=== PATIENT | female | born 1950 ===

== ENCOUNTER 2016-11-04 18:44 | Inpatient (IN) ==
[2016-11-04] MEDS ORDERED: ONDANSETRON 4 MG/2 ML VIAL IV STA (19:01)
[2016-11-04] MEDS ORDERED: MORPHINE 2 MG/1 ML SYRINGE IV STA (19:01)
[2016-11-04] MEDS ORDERED: ASPIRIN 325 MG TABLET PO STA (19:01)
[2016-11-04] MEDS ORDERED: FUROSEMIDE 100 MG/10 ML VIAL IV STA (19:01)
[2016-11-04] MEDS ORDERED: NITROGLYCERIN 2% OINT 1 INCH/GM PACK TOP STA (19:01)
[2016-11-04] MEDS ORDERED: ENOXAPARIN 100 MG/ML SYRINGE SUBCUT STA (19:01)
[2016-11-04] MEDS ORDERED: ALBUTEROL/IPRATROPIUM 3 ML NEB RESP TX STA (19:01)
--- NOTE | 2016-11-04 19:05 | Emergency Department Note ---
Misha Ivey Brittany, am scribing for, and in the presence of, Jesus Obrien MD 19:01. Camille Ivey Charles R, MD, personally performed the services described in this documentation, ascribed by Stephy Cabral in my presence, and it is both accurate and complete [id number] . Arrival - Arrival Chief Complaint: Chest Pain ED Nursing Triage Note: py was transfered from [facility] for cp and sob for a few weeks. increased bnp Mode of Arrival: Stretcher Limitations: No Limitations Source: Patient, RN Notes Reviewed Time Seen by Provider: 11/04/16 18:51 - History of Present Illness HPI Narrative: Patient is a 66 y/o [place] female presenting to the ED by EMS from [facility] for further evaluation of new onset Heart Failure. Patient presented to [facility] with c/o chest pain and shortness of breath with an onset of a week, progressively worsening each day. Chest pain occurred mostly on the right side. Patient reports that she has been short of breath which has made ambulation and laying down comfortably difficult for her. She has also had some nausea and vomiting as well. Her oxygen saturation is 97% on oxygen 2L via NC. She denies having any chest pain as of now, but is still short of breath. 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 As she gives history it is apparent that prior CVA may have also affected her speech. She has no other complaint/pain. Onset (ago): week(s) (1) Consistency: constant Severity: moderate Severity scale (1-10): 6 Quality: aching Allergies/Adverse Reactions: Allergies Allergy/AdvReac Type Severity Reaction Status Date / Time No Known Allergies Allergy Unverified 11/04/16 18:50 Review of System - Review of System 12 point system: reviewed and no additional remarkable complaints except as stated - Review of System Constitutional: Absent: chills, fever Eyes: Absent: vision change Head/Ears/Nose/Throat: Absent: nasal drainage, sore throat Respiratory: Present: respiratory distress Cardiovascular: Present: chest pain Gastrointestinal: Present: nausea, vomiting. Absent: abdominal pain, diarrhea, constipation Genitourinary female: Absent: dysuria, frequency, urgency Musculoskeletal: Absent: arm pain, back pain, leg pain, neck pain Skin: Absent: rash Neurological: Absent: headache Psychiatric: Absent: anxiety, depression Hematological/Lymphatic: Absent: easy bleeding, easy bruising Medical,Surgical,& Family Hx - Medical History Cardio: History of: Hypertension Neurology: History of: Cerebrovascular Accident (x2) Endocrine: History of: Diabetes Mellitus (IDDM), Dyslipidemia - Social History Smoking Status: Never smoker Frequency of Alcohol Use: None Type of Drug Use: None Exam Vital Signs: Vital Signs Temperature 97.8 F 11/04/16 18:44 Pulse Rate 100 H 11/04/16 18:44 Respiratory Rate 20 11/04/16 18:44 Blood Pressure 119/57 11/04/16 18:44 O2 Sat by Pulse Oximetry 87 L 11/04/16 18:44 - General General appearance: alert, in no apparent distress, other (speaks loudly during exam likely residual from prior CVA) - Head Head exam: Present: atraumatic, normocephalic, normal inspection - Eye Eye exam: Present: normal appearance, PERRL, EOMI - ENT ENT exam: Present: normal exam, normal oropharynx - Neck Neck exam: Present: normal inspection, full ROM, trachea midline - Chest Chest inspection: Present: normal inspection, symmetric chest wall rise - Respiratory Respiratory exam: Present: rales (to the right lung field). Absent: normal lung sounds bilaterally (decreased breath sounds to the right) - Cardiovascular Cardiovascular exam: Present: regular rate, normal rhythm, normal heart sounds. Absent: murmur, rubs, gallop - Abdominal Exam Abdominal exam: Present: soft, normal bowel sounds. Absent: distention, tenderness - Extremities Exam Extremities exam: Present: normal inspection. Absent: pedal edema - Back Exam Back exam: Present: normal inspection - Neurological Exam Neurological exam: Present: alert, oriented X3, CN II-XII intact. Absent: motor sensory deficit - Psychiatric Psychiatric exam: Present: normal affect, normal mood - Skin Skin exam: Present: warm, dry, intact, normal color Course - Consultations Consultation #1: Hospitalist will admit patient Time: 19:00 Results - Labs Lab Results: I have reviewed the patients labs Labs: All results reviewed from previous facility Critical Care Time Critical Care Time: Yes Total Critical Care Time: 30 Disposition Clinical Impression: Atypical chest pain, New onset of congestive heart failure, Hyponatremia, Elevated troponin, History of CVA (cerebrovascular accident) Case discussed with: patient Disposition: Still a Patient Condition: Stable Time of Disposition: 19:05
[2016-11-04] MEDS ORDERED: ONDANSETRON 4 MG/2 ML VIAL ONE (19:22)
[2016-11-04] MEDS ORDERED: ENOXAPARIN 80 MG/0.8 ML SYRINGE SUBCUT ONE (19:22)
[2016-11-04] MEDS ORDERED: NITROGLYCERIN 2% OINT 1 INCH/GM PACK TOP ONE (19:22)
[2016-11-04] MEDS ORDERED: FUROSEMIDE 20 MG/2 ML VIAL ONE (19:23)
[2016-11-04] MEDS ORDERED: MORPHINE 2 MG/1 ML SYRINGE ONE (19:23)
[2016-11-04] MEDS ORDERED: FUROSEMIDE 20 MG/2 ML VIAL IV STA (19:28)
--- NOTE | 2016-11-04 19:31 | XRay Report ---
Referring Physician: Jesus Obrien Exam: XR chest 1V portable Date: November 04, 2016 at 7:11 PM Reason: Shortness of breath Comparison: Chest single view November 04, 2016 at 2:38 PM Findings: There is mild cardiomegaly. Opacities are seen within the right mid and lower lung zones and within the left lower lung zone. This is concerning for pulmonary edema, atelectasis and possibly pneumonia. No pneumothorax is identified, but there is mild to moderate bilateral pleural fluid. The osseous structures appear stable. Impression: 1. Cardiomegaly. 2. There are opacities within the right mid and lower lung zones and within the left lower lung zone. This is concerning for pulmonary edema, atelectasis and possibly pneumonia. 3. Mild to moderate bilateral pleural fluid, right greater than left. PROCEDURE INTERPRETED AT [facility] DEPARTMENT OF RADIOLOGY Final Report Signed by: Dr. Devante Robert
--- NOTE | 2016-11-04 19:31 | Hospitalist History & Physical ---
Assessment and Plan (1) Atypical chest pain Status: Acute Current Visit: Yes (2) New onset of congestive heart failure Status: Acute Current Visit: Yes (3) Elevated troponin Status: Acute Current Visit: Yes (4) History of CVA (cerebrovascular accident) Status: Acute Assessment and plan: Our plan for this patient will be admission to telemetry. We will schedule her IV Lasix. Currently she is feeling better. Will consult cardiology and get a 2D echo. Labs are being repeated now will need to follow up on the results. Current Visit: Yes History of Present Illness Chief complaint: Shortness of breath or chest pain History of present illness: Ms. Baird is a 66 year old female past medical history significant for strokes , hypertension and diabetes who presents to our hospital today as a transfer from [facility]. Patient relates a history of urgency with poor results this been going on for a little while. She is noticed that she has had generalized weakness with exertion. She gets short of breath when she exerts herself and lays flat. She went to the [facility] complaining of chest pain shortness of breath onset 1 week. Seems like it has been worsening every day. Chest pain occurs on the right. She has had some nausea and vomiting also. Currently is not having any chest pain is still short of breath but does feel better since receiving Lasix. I was consulted to admit her through the emergency room. Allergies Allergy/AdvReac Type Severity Reaction Status Date / Time No Known Allergies Allergy Unverified 11/04/16 18:50 Medical,Surgical,& Family Hx - Medical History Cardio: History of: Hypertension Neurology: History of: Cerebrovascular Accident (x2) Endocrine: History of: Diabetes Mellitus (IDDM), Dyslipidemia - Surgical History Reproductive Surgeries: Surgical HX of;: Section - Family History Family History: Reports;: Family Diabetes, Family Heart Disease - Social History Smoking Status: Never smoker Frequency of Alcohol Use: None Type of Drug Use: None 12 point system: reviewed and no additional remarkable complaints except as stated Exam - Constitutional Vitals: Period Temp Pulse Resp BP Sys/Natarajan Pulse Ox Last 24 Hr 97.8 F-97.8 F 100-100 20-20 119-119/57-57 87 - General General appearance: alert, in no apparent distress, - Head Head exam: Present: atraumatic, normocephalic, normal inspection - Eye Eye exam: Present: normal appearance, PERRL, EOMI - ENT ENT exam: Present: normal exam, normal oropharynx - Neck Neck exam: Present: normal inspection, full ROM, trachea midline - Chest Chest inspection: Present: normal inspection, symmetric chest wall rise - Respiratory Respiratory exam: Present: Rales are noted bilaterally in the basis - Cardiovascular Cardiovascular exam: Present: regular rate, normal rhythm, normal heart sounds - Abdominal Exam Abdominal exam: Present: soft, normal bowel sounds - Extremities Exam Extremities exam: Present: normal inspection - Back Exam Back exam: Present: normal inspection - Neurological Exam Neurological exam: Present: alert, oriented X3, CN II-XII intact - Psychiatric Psychiatric exam: Present: normal affect, normal mood - Skin Skin exam: Present: warm, dry, intact, normal color Results - Labs Labs: Labs from outside facility troponin 0.065 CK-MB 1.1 CPK 50 white blood cells 6.9 hemoglobin 11.9 hematocrit 36.2 platelets 217 glucose 124 BUN 24 creatinine 1.0 calcium 8.0 sodium 145 potassium 3.9 chloride 110 bicarb 28 total protein 6.4 albumin 2.3 total bili 0.5 alk phos 75 SGOT 19 SGPT 14 amylase 28 lipase 105 urinalysis negative nitrites negative leukocyte esterase
[2016-11-04] MEDS ORDERED: DEXTROSE 50% 25 GM/50 ML VIAL IV PRN ×2 (19:39)
[2016-11-04] MEDS ORDERED: MAGNESIUM SULF RIDER 2 GM in PREMIX 1 EACH IV PRN (19:39)
[2016-11-04] MEDS ORDERED: ACETAMINOPHEN 325 MG TABLET PO PRN (19:39)
[2016-11-04] MEDS ORDERED: ONDANSETRON 4 MG/2 ML VIAL IV PRN (19:39)
[2016-11-04] MEDS ORDERED: GLUCAGON 1 MG VIAL IM PRN ×2 (19:39)
[2016-11-04] MEDS ORDERED: MAGNESIUM SULF RIDER 4 GM in PREMIX 1 EACH IV PRN (19:39)
[2016-11-04 19:59] LABS: Basophils % 0.1 % (0.0-0.8); Eosinophils # 0.2 10*3/uL (0.0-0.87); Eosinophils % 2.5 % (0.00-10.9); Hematocrit 34.1 VOL% (35.7-47.0); Hemoglobin 10.8 GM/DL (12.0-16.0); Immature Granulocytes % 0.3 %; Immature Granulocytes Absolute 0.02 #; Lymphocytes # 1.8 10*3/uL (1.4-4.0); Lymphocytes % 24.5 % (21.3-54.2); Mean Corpuscular HGB Conc 31.7 GM/DL (32-36); Mean Corpuscular Hemoglobin 27 PG (27-34); Mean Corpuscular Volume 84.8 FL (87-102); Mean Platelet Volume 11.3 FL (9.6-12.0); Monocytes # 0.3 10*3/uL (0.11-0.8); Monocytes % 3.9 % (1.7-12.7); Neutrophils % 68.7 % (38.7-73.9); Platelet Count 203 T/CUMM (130-400); Red Blood Count 4.02 MC/CUMM (3.8-5.5); Red Cell Distribution Width 13.8 % (9.3-17.3); White Blood Count 7.2 T/CUMM (4-12)
[2016-11-04 20:06] LABS: Apearance,Urine CLEAR (Clear); Bacteria,Urine Occasional /HPF (Few); Bilirubin,Urine Negative (Negative); Blood, Urine Small mg/dL (Negative); Glucose,Urine (UA) Negative (Negative); Granular Casts,Urine 16 /LPF (0-1); Hyaline Casts,Urine 26 /LPF (0-3); Ketones,Urine Negative (Negative); Mucus,Urine Occasional /LPF (Occasional); Nitrite,Urine Negative (Negative); Protein,Urine 100 MG/DL; RBC,Urine 2 /HPF (0-4); Squamous Epithelial Cell,Urine Occasional /HPF (0-10); Urine Color Straw (Yellow); Urine Specific Gravity 1.009 (1.001-1.035); Urine Urobilinogen < 2.0 EU/DL (0.2-1.0); WBC,Urine 1 /HPF (0-6)
[2016-11-04 20:13] LABS: D-Dimer 1.1 MG/L FEU; INR 0.9; PT Patient Result 9.9 SECS
[2016-11-04 20:31] LABS: Alanine Aminotransferase < 9 U/L (13-56); Albumin 2.3 G/DL (3.4-5.0); Alkaline Phosphatase 78 U/L (45-117); Aspartate Amino Transferase 17 U/L (0-37); Blood Urea Nitrogen 23 MG/DL (7-18); Calcium 7.8 MG/DL (8.5-10.1); Glucose 117 MG/DL (74-106); Magnesium 2.1 MG/DL (1.8-2.4); Osmolality,Calculated 296.4 MOS/KG (273-304); Potassium 4.1 MMOL/L (3.5-5.1); Sodium 147 MMOL/L (136-145); Total Protein 5.8 G/DL (6.4-8.3)
[2016-11-04 20:48] LABS: Risk Ratio 5.42; VLDL CHOLESTEROL 26.4 MG/DL
[2016-11-04] MEDS: INSULIN REGULAR 100 UNIT/ML SUBCUT SCH (23:02)
[2016-11-04 23:15] LABS: Troponin I Only 0.992 NG/ML (0.00-0.045)
[2016-11-05] MEDS: NITROGLYCERIN 2% OINT 1 INCH/GM PACK TOP SCH ×4 (02:05→17:37)
[2016-11-05 05:56] LABS: Calcium 7.3 MG/DL (8.5-10.1); Osmolality,Calculated 303.4 MOS/KG (273-304); Potassium 4.3 MMOL/L (3.5-5.1)
[2016-11-05 06:01] LABS: Troponin I Only 0.822 NG/ML (0.00-0.045)
[2016-11-05] MEDS ORDERED: FUROSEMIDE 40 MG/4 ML VIAL IV SCH (08:00)
[2016-11-05] MEDS ORDERED: ENOXAPARIN 80 MG/0.8 ML SYRINGE SUBCUT SCH (08:00)
--- NOTE | 2016-11-05 08:01 | EKG Report ---
Stationary ECG Study [facility] Test Date: 11/04/2016 6:49:43 PM Pat Name: HEATH REYNOLDS Department: Room: 267 Gender: F [employer]: : 1950 Requested by: Jesus Skinner Order Number: [id number] Reading MD: TANIYA CLEMENTS Intervals [place] Rate: 95 P: 66 NE: 151 QRS: 45 QRSD: 89 T: 198 QT: 395 QTc: 447 Interpretive Statements SINUS RHYTHM ST DEVIATION AND MODERATE T-WAVE ABNORMALITY, CONSIDER INFERIOR ISCHEMIA Electronically Signed On 11-10-16 22:42:29 CDT by TANIYA CLEMENTS [email or web address]
[2016-11-05] MEDS: INSULIN REGULAR 100 UNIT/ML SUBCUT SCH ×4 (08:52→22:35)
[2016-11-05] MEDS ORDERED: LISINOPRIL 20 MG TABLET PO SCH (09:00)
--- NOTE | 2016-11-05 09:12 | Cardiology Consult Note ---
<Neyda Hopkins E - Last Filed: 11/05/16 09:24> Assessment and Plan - Time spent with patient Time spent with patient: Greater than 30 minutes (due to assessment, plan, and documentation) (1) SOB (shortness of breath) Status: Acute Assessment and plan: SEE PLAN OF CARE LISTED BELOW. Current Visit: Yes (2) Elevated troponin Status: Acute Assessment and plan: SEE PLAN OF CARE LISTED BELOW. Current Visit: Yes (3) Family history of premature CAD Status: Chronic Assessment and plan: SEE PLAN OF CARE LISTED BELOW. Current Visit: Yes (4) New onset of congestive heart failure Status: Acute Assessment and plan: SEE PLAN OF CARE LISTED BELOW. Current Visit: Yes (5) Hypertension Status: Chronic Assessment and plan: SEE PLAN OF CARE LISTED BELOW. Current Visit: Yes (6) Hyperlipidemia Status: Chronic Assessment and plan: SEE PLAN OF CARE LISTED BELOW. Current Visit: Yes (7) Diabetes Status: Chronic Assessment and plan: SEE PLAN OF CARE LISTED BELOW. Current Visit: Yes (8) History of CVA (cerebrovascular accident) Status: Chronic Assessment and plan: SEE PLAN OF CARE LISTED BELOW. 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 Baird is a 66 year old female with a history of hypertension, diabetes, hyperlipidemia, chronic back pain, and previous CVA x2. She has risk factors significant for: age, hypertension, hyperlipidemia, diabetes, family history of premature CAD, sedentary lifestyle. She is a lifetime nonsmoker but reports she did chew tobacco for 6-7 years but quit around the time of her first stroke in 2011 or 2012. Her most recent stroke was his past year. She requires the use of a walker and occasionally a wheelchair. She tells me she had a brother who from an [place] around the age of 50 and she also had a sister who from an [place] around the age of 50. To her knowledge, she has never had a stress test or heart catheterization although Plavix is listed as one of her home medications. She was transferred to our facility last night from [facility] for further evaluation of shortness of breath. Mrs. Baird tells me for the past year, she has had occasional episodes of shortness of breath and a feeling of "chest pounding" which is worse when she lies down to sleep at night. She reports the "pounding" sensation has felt more right sided and when this occurs , she states she takes an aspirin and this seems to help some. She tells me this has worsened over the past week to the point where she cannot sleep well at night and sometimes cannot lie flat to sleep. She reports a "heaviness" feeling in her chest and reports she has had some associated nausea and vomiting. At the time of exam, the patient was found lying flat in the bed asleep and was easily arousable. She has been given IV lasix and reports she already feels somewhat better. On admission, Mrs. Baird was found to have a BNP of 1237 with creatinine of 1.0. Initial troponin was 1.020 and has trended down to 0.822. Her CPK and CKMB have been normal. Creatinine is up to 1.4 today. Potassium is 4.3 and magnesium 2.1. EKG showed sinus rhythm with T-wave inversions in the inferolateral leads. She currently denies any chest pain or heaviness and is breathing comfortably on 2L O2 via NBP. Dr. Krishnan to follow with further plan and addendum. ASSESSMENT/PLAN: 1. SHORTNESS OF BREATH - Overall much improved after doses of Lasix. However, her symptoms are concerning for coronary disease. She will need further cardiac evaluation. Echocardiogram is pending. Will further discuss ischemic evaluation with Dr. Krishnan and await his recommendations. 2. ELEVATED TROPONIN - Initial troponin at our facility 1.02, 0.65 at [facility]. T- wave inversions noted inferolaterally. Patient has significant risk factors for CAD. 3. FAMILY HISTORY OF PREMATURE CAD - Patient had a brother and sister who both from [place]'s around the age of 50. 4. NEW ONSET CHF - Echocardiogram is pending. BNP 1237 on admission. Patient is receiving Lasix 40mg IV BID and lisinopril 40mg po daily. We will start her on a low dose beta odin. 5. HYPERTENSION - Currently well controlled. Will continue to monitor and adjust as needed. 6. HYPERLIPIDEMIA - Triglycerides 132, cholesterol 233, LDL 159, and HDL 43. Continue Tricor and Fish Oil. May consider changing to statin. 7. DIABETES - Hospital medicine following. 8. HISTORY OF CVA - First CVA in 2011 or 2012, second CVA last year. Requires use of walker and occasionally wheelchair for ambulation. CC: Jean Claude Chow MD - Home Medications and Allergies Home Medications: Home Medications Medication Instructions Recorded Confirmed Type Aspirin 81 mg PO DAILY 11/04/16 11/04/16 History Clopidogrel [Plavix] 75 mg PO DAILY 11/04/16 11/04/16 History Fenofibrate [Tricor] 145 mg PO DAILY 11/04/16 11/04/16 History Insulin Detemir [Levemir] 55 unit SUBCUT BEDTIME 11/04/16 11/04/16 History Lisinopril 40 mg PO DAILY 11/04/16 11/04/16 History [place]-3/Dha/Epa/Fish Oil [Fish Oil 1 each PO DAILY 11/04/16 11/04/16 History 1,000 mg Softgel] metFORMIN [Glucophage] 500 mg PO BID W/MEALS 11/04/16 11/04/16 History Allergies/Adverse Reactions: Allergies Allergy/AdvReac Type Severity Reaction Status Date / Time No Known Allergies Allergy Unverified 11/04/16 18:50 Review of systems: - Constitutional: Present: fatigue, daytime sleepiness, As per HPI. Absent: anorexia, chills, excessive sweating, fever(s), frequent falls, headache(s), increased appetite, lethargy, malaise, night sweats, stops breathing during sleep, weakness, weight gain, weight loss, - EENT Eyes: Present: As per HPI. Absent: blurry vision, diplopia, loss of vision Ears: Present: As per HPI. Absent: decreased hearing, ear discharge, ear pain Nose, mouth and throat: Present: As per HPI. Absent: dysphagia, epistaxis, headache(s), hoarseness, lip swelling, nasal congestion, neck mass, neck pain, sinus pressure, sore throat, throat swelling, tongue swelling, vertigo - Cardiovascular: Present: chest pain at rest, dyspnea, dyspnea on exertion, as per HPI. Absent: chest pain with activity, edema, claudication, diaphoresis, radiating jaw, neck or arm pain, lightheadedness, orthopnea, palpitations, PND - Respiratory: Present: dyspnea, dyspnea on exertion, as per HPI. Absent: cough , hemoptysis, wheezing, snoring, pain on inspiration - Gastrointestinal: Present: nausea, vomiting As per HPI. Absent: abdominal pain , bloating, change in bowel habits, constipation, diarrhea, heartburn, hematemesis, hematochezia, loose stools, melena, - Genitourinary: Present: As per HPI. Absent: difficulty urinating, dysuria, flank pain, hematuria, nocturia, urinary frequency, urinary incontinence - Musculoskeletal: Present: back pain, As per HPI. Absent: arthralgias, joint swelling, muscle cramps, muscle weakness, myalgias - Neurological: Present: impaired gait, As per HPI. Absent: abnormal speech, behavioral changes, confusion, convulsions, disequilibrium, dizziness, focal weakness, frequent falls, headache(s), memory loss, numbness, paresthesias, radicular pain, syncope, tremor(s) - Psychiatric: Present: As per HPI. Absent: anxiety, confusion, depression, panic attacks - Endocrine: Present: fatigue, As per HPI. Absent: cold intolerance, heat intolerance, polydipsia, polyphagia - Hematologic/Lymphatic: Present: As per HPI. Absent: easy bleeding, easy bruising, lymphadenopathy Medical,Surgical,& Family Hx - Medical History Cardio: History of: Hypertension Neurology: History of: Cerebrovascular Accident (x2) Endocrine: History of: Diabetes Mellitus (IDDM), Dyslipidemia - Surgical History Cardiac Surgeries: Patient Denies: Cardiac Catheterization Neurologic Surgeries: Patient denies: Neurologic Surgery Reproductive Surgeries: Surgical HX of;: Section - Family History Family History: Reports;: Family Diabetes, Family Heart Disease - Social History Smoking Status: Never smoker Frequency of Alcohol Use: None Type of Drug Use: None Marital Status: Lives With:: Spouse Functional capacity: uses cane/walker Physical Examination Vital Signs Temp Pulse Resp BP Pulse Ox 97.8 F 100 H 20 119/57 87 L 11/04/16 18:44 11/04/16 18:44 11/04/16 18:44 11/04/16 18:44 11/04/16 18:44 Other: General appearance: Pleasant and cooperative. Overweight, no acute distress. - Head Head exam: Present: normal inspection, normocephalic, atraumatic. Absent: hematoma, laceration - Eye Eye exam: Present: EOMI. Absent: conjunctival injection, nystagmus, periorbital swelling, scleral icterus, laceration to eyelids Pupils: Present: PERRL. Absent: constricted, dilated, fixed, irregular, unequal - ENT ENT exam: Present: Poor dentition, normal external ear exam - Neck Neck exam: Present: normal inspection. Absent: lymphadenopathy, meningismus, tenderness, thyromegaly - Respiratory Respiratory exam: Present: clear to auscultation bilaterally. Absent: accessory muscle use, chest wall tenderness - Cardiovascular Cardiovascular exam: Present: regular rate and rhythm, soft systolic murmur best appreciated at LUSB. Absent: carotid bruit, gallop, JVD, rubs - GI/Abdominal GI/Abdominal exam: Present: normal bowel sounds, soft. Absent: distended, firm , guarding, hernia, mass, tenderness, rebound. - Extremities Exam Extremities exam: Present: normal inspection, normal capillary refill. Upper extremity pulses 2+. Lower extremity pulses 2+. Absent: calf tenderness, edema -Musculoskeletal Exam Musculoskeletal: Present: No Fluid Collection, No Pain, Normal Range of Motion - Back Exam Back exam: Present: normal inspection. Absent: muscle spasm, vertebral tenderness - Neurological Exam Neurological exam: Present: alert, oriented X3, grossly intact without resting or essential tremor - Psychiatric Psychiatric exam: Present: normal affect, normal mood - Skin Skin exam: Present: normal color, warm, dry, intact. Absent: cyanosis, diaphoretic, rash, urticaria Result/EKG - Labs CBC & BMP: 11/04/16 19:50 11/05/16 04:05 Lab Results: I have reviewed the past 24 hour labs Labs: Laboratory Results - last 24 hr 11/04/16 11/04/16 11/04/16 19:50 19:50 19:50 WBC 7.2 RBC 4.02 Hgb 10.8 L Hct 34.1 L MCV 84.8 L MCH 27 MCHC 31.7 L RDW 13.8 Plt Count 203 MPV 11.3 Neut % (Auto) 68.7 Lymph % (Auto) 24.5 [place] % (Auto) 3.9 Eos % (Auto) 2.5 Baso % (Auto) 0.1 Neut # (Auto) 5.0 Lymph # (Auto) 1.8 Lyon # (Auto) 0.3 Eos # (Auto) 0.2 Baso # (Auto) 0.0 Immature Gran % 0.3 Nucleated RBC % 0.0 Immature Gran # 0.02 Nucleated RBCs # 0.00 INR 0.9 PT Patient/Control Mix 9.9 D-Dimer, Quantitative 1.1 Sodium Potassium Chloride Carbon Dioxide Anion Gap BUN Creatinine GFR Calculation BUN/Creatinine Ratio Glucose POC Glucose Calculated Osmolality Calcium Magnesium Total Bilirubin AST ALT Alkaline Phosphatase Total Creatine Kinase CK-MB (CK-2) Troponin I B-Natriuretic Peptide Total Protein Albumin Globulin Albumin/Globulin Ratio Triglycerides Cholesterol LDL Cholesterol VLDL Cholesterol HDL Cholesterol Heart Disease Risk Ratio Urine Color Straw Urine Appearance Clear Urine pH 5.0 Ur Specific [place] 1.009 Urine Protein 100 Urine Glucose (UA) Negative Urine Ketones Negative Urine Blood Small Urine Nitrate Negative Urine Bilirubin Negative Urine Urobilinogen < 2.0 H Urine Leukocytes Negative Urine RBC 2 Urine WBC 1 Ur Squamous Epith Cells Occasional Urine Bacteria Occasional Hyaline Casts 26 Granular Casts 16 Urine Mucus Occasional Ur Culture Indicated? Not indicated 11/04/16 11/04/16 11/04/16 19:50 19:50 19:50 WBC RBC Hgb Hct MCV MCH MCHC RDW Plt Count MPV Neut % (Auto) Lymph % (Auto) [place] % (Auto) Eos % (Auto) Baso % (Auto) Neut # (Auto) Lymph # (Auto) [place] # (Auto) Eos # (Auto) Baso # (Auto) Immature Gran % Nucleated RBC % Immature Gran # Nucleated RBCs # INR PT Patient/Control Mix D-Dimer, Quantitative Sodium 147 H Potassium 4.1 Chloride 113 H Carbon Dioxide 26 Anion Gap 12.1 BUN 23 H Creatinine 1.00 GFR Calculation 58 BUN/Creatinine Ratio 23.00 H Glucose 117 H POC Glucose Calculated Osmolality 296.4 Calcium 7.8 L Magnesium 2.1 Total Bilirubin 0.40 AST 17 ALT < 9 L Alkaline Phosphatase 78 Total Creatine Kinase CK-MB (CK-2) Troponin I 1.020 H B-Natriuretic Peptide 1237 H Total Protein 5.8 L Albumin 2.3 L Globulin 3.5 Albumin/Globulin Ratio 0.6 L Triglycerides Cholesterol LDL Cholesterol VLDL Cholesterol HDL Cholesterol Heart Disease Risk Ratio Urine Color Urine Appearance Urine pH Ur Specific [place] Urine Protein Urine Glucose (UA) Urine Ketones Urine Blood Urine Nitrate Urine Bilirubin Urine Urobilinogen Urine Leukocytes Urine RBC Urine WBC Ur Squamous Epith Cells Urine Bacteria Hyaline Casts Granular Casts Urine Mucus Ur Culture Indicated? 11/04/16 11/04/16 11/05/16 19:55 22:33 04:05 WBC RBC Hgb Hct MCV MCH MCHC RDW Plt Count MPV Neut % (Auto) Lymph % (Auto) [place] % (Auto) Eos % (Auto) Baso % (Auto) Neut # (Auto) Lymph # (Auto) [place] # (Auto) Eos # (Auto) Baso # (Auto) Immature Gran % Nucleated RBC % Immature Gran # Nucleated RBCs # INR PT Patient/Control Mix D-Dimer, Quantitative Sodium Potassium Chloride Carbon Dioxide Anion Gap BUN Creatinine GFR Calculation BUN/Creatinine Ratio Glucose POC Glucose Calculated Osmolality Calcium Magnesium Total Bilirubin AST ALT Alkaline Phosphatase Total Creatine Kinase 50 38 D CK-MB (CK-2) 2.5 2.2 Troponin I 0.992 H 0.822 H B-Natriuretic Peptide Total Protein Albumin Globulin Albumin/Globulin Ratio Triglycerides 132 Cholesterol 233 H LDL Cholesterol 159.0 VLDL Cholesterol 26.4 HDL Cholesterol 43 Heart Disease Risk Ratio 5.42 Urine Color Urine Appearance Urine pH Ur Specific [place] Urine Protein Urine Glucose (UA) Urine Ketones Urine Blood Urine Nitrate Urine Bilirubin Urine Urobilinogen Urine Leukocytes Urine RBC Urine WBC Ur Squamous Epith Cells Urine Bacteria Hyaline Casts Granular Casts Urine Mucus Ur Culture Indicated? 11/05/16 11/05/16 04:05 07:33 WBC RBC Hgb Hct MCV MCH MCHC RDW Plt Count MPV Neut % (Auto) Lymph % (Auto) [place] % (Auto) Eos % (Auto) Baso % (Auto) Neut # (Auto) Lymph # (Auto) [place] # (Auto) Eos # (Auto) Baso # (Auto) Immature Gran % Nucleated RBC % Immature Gran # Nucleated RBCs # INR PT Patient/Control Mix D-Dimer, Quantitative Sodium 147 H Potassium 4.3 Chloride 113 H Carbon Dioxide 26 Anion Gap 12.3 BUN 28 H Creatinine 1.40 H GFR Calculation 40 BUN/Creatinine Ratio 20.00 Glucose 202 H POC Glucose 235 H Calculated Osmolality 303.4 Calcium 7.3 L Magnesium Total Bilirubin AST ALT Alkaline Phosphatase Total Creatine Kinase CK-MB (CK-2) Troponin I B-Natriuretic Peptide Total Protein Albumin Globulin Albumin/Globulin Ratio Triglycerides Cholesterol LDL Cholesterol VLDL Cholesterol HDL Cholesterol Heart Disease Risk Ratio Urine Color Urine Appearance Urine pH Ur Specific [place] Urine Protein Urine Glucose (UA) Urine Ketones Urine Blood Urine Nitrate Urine Bilirubin Urine Urobilinogen Urine Leukocytes Urine RBC Urine WBC Ur Squamous Epith Cells Urine Bacteria Hyaline Casts Granular Casts Urine Mucus Ur Culture Indicated? - EKG EKG results: interpreted by me, sinus rhythm (with T-wave abnormality) <Jesse Krishnan - Last Filed: 11/05/16 10:15> History of Present Illness - Consult Narrative History of present illness: Patient personally interviewed and examined and chart reviewed. I discussed the case with Neyda Hopkins FISCAL ASSISTANT. I agree with assessment and evaluation. In addition and summation Ms. Baird is a 66 year old female who is overall fairly poor historian. She recently has had progressive dyspnea episodes as well as some chest discomfort. Some of this is with rest and exertion. This progressed point she presented to the emergency room and was evaluated. He was transferred from [facility] last night after presentation their evaluation. Her peak troponin is 1.02 with normal CPK. MB fraction is normal. She has inferior lateral ST-T abnormalities possible secondary to ischemia. She denies any prior cardiac history. She does have multiple risk factors including a prior history of CVA as well as having hypertension dyslipidemia and diabetes. Her creatinine is 1.4 today but was 1.0 yesterday. Her BUN is up some. Her BNP is elevated at 1237. With her history and elevated troponin and abnormal ECG and multiple risk factors she should have cardiac catheterization for definitive diagnosis and treatment. I discussed procedure with the patient and her reviewing the case procedure have be carried out and the risk. I discussed cardiac catheterization and percutaneous coronary intervention with the patient and available family. I reviewed with them the indications for the procedure and the basis of how the procedure would be carried out. I also reviewed with them the risk of the procedure which include but not necessarily limited to access site bleeding, bruising, pain, swelling or vascular injury that may require emergency vascular surgery, blood transfusion, or thrombin injection. Also discussed the possibility of stroke, myocardial infarction, arrhythmia which may require electrocardioversion, and the possibility of dye reaction that would require medical therapy. Also discussed the possibility of coronary artery injury, ruptured, closure or perforation that may require emergency bypass surgery. We also discussed the possibility of from a major complication. They voice understanding and agree to proceed. We will discuss this with Dr. Alcala who will be caring procedure out. CC: Jean Claude Chow MD Physical Examination Vital Signs Temp Pulse Resp BP Pulse Ox 97.8 F 100 H 20 119/57 87 L 11/04/16 18:44 05/08/17 18:44 11/04/16 18:44 11/04/16 18:44 11/04/16 18:44 Other: Examination was carried out and have nothing to add or change to the above. Result/EKG - Labs CBC & BMP: 11/04/16 19:50 11/05/16 04:05 Labs: Laboratory Results - last 24 hr 11/04/16 11/04/16 11/04/16 19:50 19:50 19:50 WBC 7.2 RBC 4.02 Hgb 10.8 L Hct 34.1 L MCV 84.8 L MCH 27 MCHC 31.7 L RDW 13.8 Plt Count 203 MPV 11.3 Neut % (Auto) 68.7 Lymph % (Auto) 24.5 Lyon % (Auto) 3.9 Eos % (Auto) 2.5 Baso % (Auto) 0.1 Neut # (Auto) 5.0 Lymph # (Auto) 1.8 [place] # (Auto) 0.3 Eos # (Auto) 0.2 Baso # (Auto) 0.0 Immature Gran % 0.3 Nucleated RBC % 0.0 Immature Gran # 0.02 Nucleated RBCs # 0.00 INR 0.9 PT Patient/Control Mix 9.9 D-Dimer, Quantitative 1.1 Sodium Potassium Chloride Carbon Dioxide Anion Gap BUN Creatinine GFR Calculation BUN/Creatinine Ratio Glucose POC Glucose Calculated Osmolality Calcium Magnesium Total Bilirubin AST ALT Alkaline Phosphatase Total Creatine Kinase CK-MB (CK-2) Troponin I B-Natriuretic Peptide Total Protein Albumin Globulin Albumin/Globulin Ratio Triglycerides Cholesterol LDL Cholesterol VLDL Cholesterol HDL Cholesterol Heart Disease Risk Ratio Urine Color Straw Urine Appearance Clear Urine pH 5.0 Ur Specific [place] 1.009 Urine Protein 100 Urine Glucose (UA) Negative Urine Ketones Negative Urine Blood Small Urine Nitrate Negative Urine Bilirubin Negative Urine Urobilinogen < 2.0 H Urine Leukocytes Negative Urine RBC 2 Urine WBC 1 Ur Squamous Epith Cells Occasional Urine Bacteria Occasional Hyaline Casts 26 Granular Casts 16 Urine Mucus Occasional Ur Culture Indicated? Not indicated 11/04/16 11/04/16 11/04/16 19:50 19:50 19:50 WBC RBC Hgb Hct MCV MCH MCHC RDW Plt Count MPV Neut % (Auto) Lymph % (Auto) [place] % (Auto) Eos % (Auto) Baso % (Auto) Neut # (Auto) Lymph # (Auto) [place] # (Auto) Eos # (Auto) Baso # (Auto) Immature Gran % Nucleated RBC % Immature Gran # Nucleated RBCs # INR PT Patient/Control Mix D-Dimer, Quantitative Sodium 147 H Potassium 4.1 Chloride 113 H Carbon Dioxide 26 Anion Gap 12.1 BUN 23 H Creatinine 1.00 GFR Calculation 58 BUN/Creatinine Ratio 23.00 H Glucose 117 H POC Glucose Calculated Osmolality 296.4 Calcium 7.8 L Magnesium 2.1 Total Bilirubin 0.40 AST 17 ALT < 9 L Alkaline Phosphatase 78 Total Creatine Kinase CK-MB (CK-2) Troponin I 1.020 H B-Natriuretic Peptide 1237 H Total Protein 5.8 L Albumin 2.3 L Globulin 3.5 Albumin/Globulin Ratio 0.6 L Triglycerides Cholesterol LDL Cholesterol VLDL Cholesterol HDL Cholesterol Heart Disease Risk Ratio Urine Color Urine Appearance Urine pH Ur Specific [place] Urine Protein Urine Glucose (UA) Urine Ketones Urine Blood Urine Nitrate Urine Bilirubin Urine Urobilinogen Urine Leukocytes Urine RBC Urine WBC Ur Squamous Epith Cells Urine Bacteria Hyaline Casts Granular Casts Urine Mucus Ur Culture Indicated? 11/04/16 11/04/16 11/05/16 19:55 22:33 04:05 WBC RBC Hgb Hct MCV MCH MCHC RDW Plt Count MPV Neut % (Auto) Lymph % (Auto) [place] % (Auto) Eos % (Auto) Baso % (Auto) Neut # (Auto) Lymph # (Auto) [place] # (Auto) Eos # (Auto) Baso # (Auto) Immature Gran % Nucleated RBC % Immature Gran # Nucleated RBCs # INR PT Patient/Control Mix D-Dimer, Quantitative Sodium Potassium Chloride Carbon Dioxide Anion Gap BUN Creatinine GFR Calculation BUN/Creatinine Ratio Glucose POC Glucose Calculated Osmolality Calcium Magnesium Total Bilirubin AST ALT Alkaline Phosphatase Total Creatine Kinase 50 38 D CK-MB (CK-2) 2.5 2.2 Troponin I 0.992 H 0.822 H B-Natriuretic Peptide Total Protein Albumin Globulin Albumin/Globulin Ratio Triglycerides 132 Cholesterol 233 H LDL Cholesterol 159.0 VLDL Cholesterol 26.4 HDL Cholesterol 43 Heart Disease Risk Ratio 5.42 Urine Color Urine Appearance Urine pH Ur Specific [place] Urine Protein Urine Glucose (UA) Urine Ketones Urine Blood Urine Nitrate Urine Bilirubin Urine Urobilinogen Urine Leukocytes Urine RBC Urine WBC Ur Squamous Epith Cells Urine Bacteria Hyaline Casts Granular Casts Urine Mucus Ur Culture Indicated? 11/05/16 11/05/16 04:05 07:33 WBC RBC Hgb Hct MCV MCH MCHC RDW Plt Count MPV Neut % (Auto) Lymph % (Auto) [place] % (Auto) Eos % (Auto) Baso % (Auto) Neut # (Auto) Lymph # (Auto) [place] # (Auto) Eos # (Auto) Baso # (Auto) Immature Gran % Nucleated RBC % Immature Gran # Nucleated RBCs # INR PT Patient/Control Mix D-Dimer, Quantitative Sodium 147 H Potassium 4.3 Chloride 113 H Carbon Dioxide 26 Anion Gap 12.3 BUN 28 H Creatinine 1.40 H GFR Calculation 40 BUN/Creatinine Ratio 20.00 Glucose 202 H POC Glucose 235 H Calculated Osmolality 303.4 Calcium 7.3 L Magnesium Total Bilirubin AST ALT Alkaline Phosphatase Total Creatine Kinase CK-MB (CK-2) Troponin I B-Natriuretic Peptide Total Protein Albumin Globulin Albumin/Globulin Ratio Triglycerides Cholesterol LDL Cholesterol VLDL Cholesterol HDL Cholesterol Heart Disease Risk Ratio Urine Color Urine Appearance Urine pH Ur Specific [place] Urine Protein Urine Glucose (UA) Urine Ketones Urine Blood Urine Nitrate Urine Bilirubin Urine Urobilinogen Urine Leukocytes Urine RBC Urine WBC Ur Squamous Epith Cells Urine Bacteria Hyaline Casts Granular Casts Urine Mucus Ur Culture Indicated?
[2016-11-05] MEDS ORDERED: LIDOCAINE 1% 20 ML VIAL ONE (10:36)
[2016-11-05] MEDS: CARVEDILOL 3.125 MG TABLET PO SCH ×2 (10:48→22:33)
[2016-11-05] MEDS: OMEGA 3 ACID ETHYL ESTERS 1 GM CAPSULE PO SCH (10:48)
[2016-11-05] MEDS: FENOFIBRATE 145 MG TABLET PO SCH (10:48)
[2016-11-05] MEDS: CLOPIDOGREL 75 MG TABLET PO SCH (10:48)
[2016-11-05] MEDS: SODIUM CHLORIDE 0.9% 1,000 ML IV SCH ×2 (10:48→18:58)
[2016-11-05] MEDS ORDERED: diphenhydrAMINE CAP 50 MG CAPSULE ONE (11:03)
[2016-11-05] MEDS ORDERED: DIAZEPAM 5 MG TABLET ONE (11:03)
[2016-11-05] MEDS ORDERED: DIAZEPAM 5 MG TABLET PO ONE (11:04)
[2016-11-05] MEDS ORDERED: diphenhydrAMINE CAP 50 MG CAPSULE PO ONE (11:05)
[2016-11-05] MEDS ORDERED: POTASSIUM CHLORIDE RIDER 10 MEQ in PREMIX 1 EACH IV PRN (11:06)
[2016-11-05] MEDS ORDERED: MAGNESIUM SULF RIDER 2 GM in PREMIX 1 EACH IV PRN (11:06)
[2016-11-05] MEDS ORDERED: diphenhydrAMINE CAP 25 MG CAPSULE PO ONE (11:06)
--- NOTE | 2016-11-05 11:07 | Event Note ---
Ms. Baird's multiple risk factors for CAD and has positive troponin 3 suggesting non-STEMI in the context of her chest discomfort complaints. She has no previous known cardiac history but is a history of stroke 2. I discussed with the patient the risks and benefits of heart catheterization including but not limited to: , stroke, heart attack, vascular damage, reaction to medicine or dye, bleeding requiring blood transfusion, failure of the procedure, and the possible need for planned or emergency surgery. I have answered all the patient's questions regarding the procedure, and the patient is agreeable to proceed.
[2016-11-05] MEDS ORDERED: HYDROmorphone 2 MG/1 ML VIAL ONE (11:28)
[2016-11-05] MEDS ORDERED: MIDAZOLAM 2 MG/2 ML VIAL ONE (11:29)
[2016-11-05] MEDS ORDERED: ASPIRIN 325 MG TABLET ONE (11:42)
[2016-11-05] MEDS ORDERED: ADENOSINE 90 MG/30 ML VIAL IV ONE (11:55)
[2016-11-05] MEDS ORDERED: CLOPIDOGREL 300 MG TABLET ONE (12:28)
[2016-11-05] MEDS ORDERED: HYDROmorphone 2 MG/1 ML VIAL IV PRN (12:34)
[2016-11-05] MEDS ORDERED: NITROGLYCERIN SL 0.4 MG TABLET SL PRN (12:34)
--- NOTE | 2016-11-05 12:49 | Cardiac Catheterization ---
Date of Procedure:: 11/05/16 Post-op diagnosis: same Procedure: Procedure performed: 1. Coronary angiography 2. Primary stenting of mid circumflex dissection with drug-eluting stent (4.0 x 15) 3. WaveWire evaluation of distal LAD disease 4. WaveWire evaluation of mid RCA disease 5. Right femoral arteriotomy closed with mixed device Brief clinical summary comes Oli's 66-year-old with risk factors for CAD and history of 2 strokes presents with chest pain episodes and elevated troponin to approximately 1 suggesting non-STEMI. Description of procedure: After obtaining informed consent, the right groin was prepped and draped in the usual sterile fashion. Next a short 6 [place] sheath was placed in the right femoral artery using a modified Seldinger technique, after the patient received IV sedation and local anesthetic. Next a JL4 catheter was advanced over a guidewire under fluoroscopic guidance, and was engaged to the left coronary artery after which angiography was performed in multiple views. This was then removed over a wire, and a JR4 catheter was advanced in similar fashion, and was engaged to the right coronary artery after which angiography was performed in multiple views. Percutaneous coronary intervention was then performed as described below. After the intervention, an angiogram of the sheath showed that it was inserted in the right distal common femoral/proximal superficial femoral artery in a vessel suitable for closure. Hemostasis was obtained with minx device with no residual bleeding. The patient was transferred from the bed laborer in good condition without complication. Coronary angiography: Left main coronary arteries normal developed and free of disease. Left anterior CRE is averaging caliber reaches the apex. It gives off a slightly thinner than average diagonal branch and a tiny second diagonal branch. There is diffuse mild disease of less than 30% with one 60% discrete mid to distal stenosis and what appears to be a shallow area of bridging. Circumflex branch is large average caliber. Gives off a tiny OM1 M2 branch and an average caliber OM 3 and OM 4 branch. Before the OM 3 there is a dissection in the mid circumflex which is not flow-limiting. In one view it appears to have moderate intermedius stenosis. The right coronary artery is of average caliber of the dominant vessel. There is a mild 30% proximal stenosis and a 60 % distal stenosis as well as a 30% ostial PDA stenosis and average caliber PDA. There is also a slightly thinner than average but fairly long posterior lateral branch with proximal 30% disease. Percutaneous coronary intervention: The patient arrived to the Separator Tender on full dose Lovenox and have been given aspirin. She was also on Plavix 75 mg this morning. I will order an additional 600 and Plavix after the intervention. N and EBU 3.5 guiding cath was advanced engaged the left coronary artery which provided good support. A pro-water wire was advanced to the distal circumflex with little difficulty. Next a 4.0 x 15 [place] stent was advanced across her disease employed at nominal pressures. The stent was slightly oversized but there was a very good result. There was VANIA-3 flow before and after the procedure. The wire was then removed and a wave wire was advanced and calibrated at the distal edge of the guide, it was then advanced to the distal LAD with only modest difficulty. Adenosine infusion was given for 3 minutes and FFR was not significant at 0.84, so the vessel was treated medically. The wire and guide were then removed. Next an AR-1 guide was advanced engaged the right coronary artery was provided good support. The wave wire was advanced past the mid to distal RCA lesion with only modest difficulty. Adenosine infusion was again given FF there was 0.87 at the lowest. Therefore this was treated medically as well. The wire catheter removed from the body. And antrum the she should have inserted at the bifurcation of the right common femoral artery. There was a severe proximal SFA lesion about a centimeter below the sheath. There probably angiogram which define it better and also showed some popliteal disease. Impression: 1. Right dominant system 2. Coronary artery disease as described above including but not limited to: A. Discrete mid to distal 60% LAD disease and an area of shallow "bridging" without significant contraction. This was shown to be nonhemodynamically significant by way for evaluation of (FFR 0.84) B. Mid circumflex dissection, which appears to be unstable plaque of greater than 50% in 1 view. C. Discrete 60% mid to distal RCA stenosis noted to be nonsignificant by WaveWire evaluation of (FFR 0.87) 3. Status post primary stenting of mid circumflex dissection with 4.0 x 15 drug -eluting stent with excellent result 4. Incidental finding of 90% very proximal right SFA stenosis, and significant popliteal stenosis of approximately 70% Recommendation discussion: I believe achieved very good result with regard to stenting Mr. Baird's midcircumflex dissection which I suspect is her culprit lesion. Although it is flow-limiting, and appears to be an unstable plaque. I am uncertain whether the LAD is a atherosclerotic plaque or an area of bridging or a mixture of the two. However medical management is appropriate given his hemodynamically not significant at this time. I am surprised the RCA lesion was not significant as it appears to be significant by angiogram. We will proceed with medical management. She will need to avoid squatting strain or lifting for the next week. I will be curious to question her further with regard to her PAD if she has significant claudication or not. Anesthesia: minimal conscious sedation Surgeon / Physician: Shlomo Alcala Production Counter: other Estimated blood loss: minimal Specimens: none sent Condition: stable Disposition: floor - Medications / Follow-up
--- NOTE | 2016-11-05 13:15 | EKG Report ---
Stationary ECG Study [facility] Test Date: 11/05/2016 1:15:25 PM Pat Name: HEATH REYNOLDS Department: Room: 267 Gender: F Electrical Tester: TED : 1950 Requested by: Shlomo Bey Order Number: [id number] Reading MD: TANIYA CLEMENTS Intervals [place] Rate: 92 P: 52 MD: 147 QRS: 18 QRSD: 95 T: 157 QT: 401 QTc: 451 Interpretive Statements SINUS RHYTHM POSSIBLE LEFT ATRIAL ENLARGEMENT Electronically Signed On 11-11-16 10:58:59 CDT by TANIYA CLEMENTS [email or web address]
[2016-11-05] MEDS ORDERED: CLOPIDOGREL 300 MG TABLET PO ONE (13:52)
--- NOTE | 2016-11-05 14:31 | ECHO Report ---
Allyson Baird Exam Date: 11/05/2016 09:26 Referring Physician: Technologist: Elisa Davis RDCS Age: 66 Ht (in): 64 Wt (lb): 155 Gender: F Exam Location: [facility] Echo Indications: Chest pain, unspecified, Heart failure, unspecified, Elevated troponin, hx CVA, Essential (primary) hypertension, Shortness of breath, IDDM, Weakness BP: 125 / 62 HR: 85 Rhythm: Sinus Technical Quality: Fair IMPRESSIONS 1. Left ventricle normal left ventricle size and mild concentric left ventricular hypertrophy. Ejection fraction is 55-60%. 2. The other cardiac chambers are normal size. 3. Aortic valve tricuspid structure that is sclerotic but without Doppler abnormalities. 4. Mild mitral regurgitation, tricuspid regurgitation. 5. Mildly elevated right-sided pressures. MEASUREMENTS (Male / Female) Normal Values 2D ECHO LV Diastolic Diameter PLAX 4.8 cm 4.2 - 5.9 / 3.9 - 5.3 cm LV Systolic Diameter PLAX 3.8 cm LV Fractional Shortening PLAX 21.9 % IVS Diastolic Thickness 1.3 cm 0.6 - 1.0 / 0.6 - 0.9 cm LVPW Diastolic Thickness 1.3 cm 0.6 - 1.0 / 0.6 - 0.9 cm RV Internal Dim ED PLAX 3.1 cm Aortic Root Diameter 2.9 cm LA Systolic Diameter LX 3.1 cm 3.0 - 4.0 / 2.7 - 3.8 cm DOPPLER TR Peak Velocity 309.0 cm/s TR Peak Gradient 38.2 mmHg FINDINGS Left Ventricle Normal left ventricular cavity size. Mild left ventricular hypertrophy. Left ventricular ejection fraction is estimated at 55-60 %. Right Ventricle The right ventricle is normal in size and function. Right Atrium The right atrium is normal in size. Left Atrium The left atrium is normal in size. Mitral Valve Morphologically normal mitral valve. Mild mitral valve regurgitation. Aortic Valve Aortic valve is tricuspid with sclerosis without stenosis or regurgitation. Tricuspid Valve Morphologically normal tricuspid valve. Mild tricuspid valve regurgitation. Tricuspid regurgitation velocities suggest a PAP of 48 mmHg. Pulmonic Valve Morphologically normal pulmonic valve without significant stenosis. There is no pulmonic regurgitation. Pericardium Normal pericardium without effusion. Aorta Normal ascending aorta dimension. Jesse Krishnan MD (Electronically Signed) Final Date: 05 Nov 2016 14:22
[2016-11-05] MEDS: ATORVASTATIN 40 MG TABLET PO SCH (15:59)
--- NOTE | 2016-11-05 17:22 | Hospitalist Progress Note ---
Assessment and Plan (1) NSTEMI (non-ST elevated myocardial infarction) Status: Acute Assessment and plan: Status post left heart cath with stent placement. See cardiology progress note. Current Visit: Yes (2) Elevated troponin Status: Acute Assessment and plan: Secondary to non-ST elevation myocardial infarction. See above. Current Visit: Yes (3) Hypertension Status: Chronic Current Visit: Yes Qualifiers: Hypertension type: essential hypertension Qualified Code(s): I10 - Essential (primary) hypertension (4) Hyperlipidemia Status: Chronic Current Visit: Yes Qualifiers: Hyperlipidemia type: mixed hyperlipidemia Qualified Code(s): E78.2 - Mixed hyperlipidemia (5) Diabetes Status: Chronic Current Visit: Yes Qualifiers: Diabetes mellitus type: type 2 Diabetes mellitus complication detail: with chronic kidney disease Diabetes mellitus jail insulin use: with jail use Chronic kidney disease stage: stage 2 (mild) Hospitalist: Subjective Interval history: Patient seen and examined. No acute events overnight. Case discussed with nursing staff. Labs reviewed. Patient seen after left heart cath and stent placement. at the bedside. No complaints Exam - Constitutional Vitals: Period Temp Pulse Resp BP Sys/Natarajan Pulse Ox Last 24 Hr 98 F-99.0 F 83-99 16-20 106-141/59-86 92-100 Exam: Constitutional System: No distress. No tremulousness. Head: Normocephalic, atraumatic. Ears, Nose and Throat System: No pain or tenderness. No epistaxis or discharge Eyes System: Pupils equal, round, and reactive. Extraocular muscles intact. Neck: Supple, without adenopathy, No jugular venous distention. No thyromegaly, neck mass, or prior surgery apparent. Respiratory System: Chest clear to auscultation. Cardiovascular System: Heart with regular rate and rhythm. No murmur. GI System: Abdomen soft, nontender. Normo active bowel sounds present. Musculoskeletal System: limbs with no pedal edema. Full distal pulses. Neurological System: No discernable sensory deficit. No aphasia Psychiatric System: Conversation is rational Results - Labs CBC & BMP: 11/04/16 19:50 11/05/16 04:05 Lab Results: I have reviewed the past 24 hour labs Specialty Discharge - Follow Up or Referrals
[2016-11-05] MEDS ORDERED: INSULIN GLARGINE 100 UNIT/ML SUBCUT SCH (21:00)
[2016-11-05] MEDS ORDERED: ZALEPLON 5 MG CAPSULE PO PRN (21:00)
[2016-11-06] MEDS: NITROGLYCERIN 2% OINT 1 INCH/GM PACK TOP SCH ×4 (01:26→17:01)
[2016-11-06 05:47] LABS: Basophils % 0.3 % (0.0-0.8); Eosinophils # 0.3 10*3/uL (0.0-0.87); Eosinophils % 4.5 % (0.00-10.9); Hematocrit 28.2 VOL% (35.7-47.0); Immature Granulocytes % 0.3 %; Immature Granulocytes Absolute 0.02 #; Lymphocytes % 31.6 % (21.3-54.2); Mean Corpuscular HGB Conc 31.9 GM/DL (32-36); Mean Corpuscular Hemoglobin 28 PG (27-34); Mean Corpuscular Volume 86.8 FL (87-102); Mean Platelet Volume 11.2 FL (9.6-12.0); Monocytes # 0.3 10*3/uL (0.11-0.8); Monocytes % 5.5 % (1.7-12.7); Neutrophils # 3.6 10*3/uL (1.4-7.4); Neutrophils % 57.8 % (38.7-73.9); Platelet Count 169 T/CUMM (130-400); Red Blood Count 3.25 MC/CUMM (3.8-5.5); White Blood Count 6.2 T/CUMM (4-12)
[2016-11-06 06:27] LABS: Calcium 7.4 MG/DL (8.5-10.1); Osmolality,Calculated 296.4 MOS/KG (273-304); Potassium 3.9 MMOL/L (3.5-5.1)
--- NOTE | 2016-11-06 07:20 | EKG Report ---
Stationary ECG Study [facility] Test Date: 11/06/2016 7:19:23 AM Pat Name: HEATH REYNOLDS Department: Room: 267 Gender: F Paper Stacker: KAZ : 1950 Requested by: Shlomo Bey Order Number: [id number] Reading MD: KOFI CHEN Intervals [place] Rate: 78 P: 54 NH: 122 QRS: 55 QRSD: 96 T: 212 QT: 432 QTc: 465 Interpretive Statements SINUS RHYTHM At [address] DEVIATION AND MODERATE T-WAVE ABNORMALITY, CONSIDER ISCHEMIA Electronically Signed On 11-11-16 15:24:44 CDT by KOFI CHEN [email or web address]
[2016-11-06] MEDS: INSULIN REGULAR 100 UNIT/ML SUBCUT SCH ×3 (08:46→16:24)
[2016-11-06] MEDS ORDERED: ASPIRIN CHEW 81 MG TABLET PO SCH (09:00)
[2016-11-06] MEDS: ATORVASTATIN 40 MG TABLET PO SCH (09:11)
[2016-11-06] MEDS: CLOPIDOGREL 75 MG TABLET PO SCH (09:11)
[2016-11-06] MEDS: CARVEDILOL 3.125 MG TABLET PO SCH (09:11)
[2016-11-06] MEDS: FENOFIBRATE 145 MG TABLET PO SCH (09:11)
[2016-11-06] MEDS: OMEGA 3 ACID ETHYL ESTERS 1 GM CAPSULE PO SCH (09:12)
--- NOTE | 2016-11-06 09:30 | Physician Query Form ---
CLICK EDIT DOCUMENT TO SELECT QUERY ANSWER --> OK --> SIGN Anita Carroll RN, CCDS Certified Clinical Senior Military Analyst W) [phone] (f) [phone] [email or web address] PROVIDERS: Make your selection(s) from the choices in EACH section by typing an "x" and enter comments in the comment section. Please use your independent medical judgment in providing your response. This request does not imply that any particular answer is desired or expected. CLINICAL INDICATORS: (Providers should not edit this section) The medical record indicates that the patient was admitted with a NSTEMI, BNP of 1237#, "New onset of congestive heart failure" and the patient was treated with IV Lasix. Please provide further specificity regarding CHF. ACUITY: (X ) Acute ( ) Chronic ( ) Acute on Chronic ( ) Clinically unable to determine TYPE: ( ) Systolic (HFrEF - heart failure with reduced systolic function/EF) (X ) Diastolic (HFpEF - heart failure with preserved systolic function/EF) ( ) Combined Systolic/Diastolic ( ) Other, please specify: ( ) Clinically unable to determine ( ) The patient does NOT have CHF COMMENTS: Use of terms such as suspected, likely, or probable (associated with a specific diagnosis that is being evaluated, monitored, or treated as if it exists) are acceptable and can be restated in the discharge summary if not ruled out. MTDD
--- NOTE | 2016-11-06 15:19 | Cardiology Progress Note ---
<Neyda Hopkins E - Last Filed: 11/06/16 15:06> Assessment and Plan (1) SOB (shortness of breath) Status: Acute Assessment and plan: SEE PLAN OF CARE LISTED BELOW. (2) Elevated troponin Status: Acute Assessment and plan: SEE PLAN OF CARE LISTED BELOW. (3) Family history of premature CAD Status: Chronic Assessment and plan: SEE PLAN OF CARE LISTED BELOW. (4) New onset of congestive heart failure Status: Acute Assessment and plan: SEE PLAN OF CARE LISTED BELOW. (5) Hypertension Status: Chronic Assessment and plan: SEE PLAN OF CARE LISTED BELOW. Qualifiers: Hypertension type: essential hypertension Qualified Code(s): I10 - Essential (primary) hypertension (6) Hyperlipidemia Status: Chronic Assessment and plan: SEE PLAN OF CARE LISTED BELOW. Qualifiers: Hyperlipidemia type: mixed hyperlipidemia Qualified Code(s): E78.2 - Mixed hyperlipidemia (7) Diabetes Status: Chronic Assessment and plan: SEE PLAN OF CARE LISTED BELOW. Qualifiers: Diabetes mellitus type: type 2 Diabetes mellitus complication detail: with chronic kidney disease Diabetes mellitus senior living insulin use: with termite treater use Chronic kidney disease stage: stage 2 (mild) (8) History of CVA (cerebrovascular accident) Status: Chronic Assessment and plan: SEE PLAN OF CARE LISTED BELOW. Cardiology - PN: Subj Interval history: REMELT WORKER: NONE PCP: [facility] Ms. Baird is a 66 year old female with a history of hypertension, diabetes, hyperlipidemia, chronic back pain, and previous CVA x2. She was transferred to our facility on 11/04/16 from [facility] for further evaluation of shortness of breath. This is been ongoing for the past year has progressively worsened. She also complained of a heaviness in her chest. Initial troponin was 1.020. She is also noted to have inferior lateral ST-T abnormalities, possibly secondary to ischemia. With her history, elevated troponin, abnormal EKG, and multiple risk factors, it was recommended she have cardiac catheterization to further define her coronary anatomy. On 11/05/2016, Ms. Baird underwent left heart catheterization by Dr. Alcala and received primary stenting of the mid circumflex dissection (not flow limiting) with a drug-eluting stent. She also had discrete mid to distal 60% LAD disease and area of shallow bridging, a discrete 60% mid to distal RCA stenosis, and incidental finding of 90% very proximal right SFA stenosis and significant popliteal stenosis of approximately 70%. She was loaded with Plavix and has been observed overnight on the telemetry unit. Her right groin cath site looks good. Her dressing is dry and intact, no bleeding, no hematoma, no bruit, mild tenderness, no ecchymosis. Femoral pulses 3+. Distal pulses present and palpable. Creatinine is 1.6 today. H&H is 9.0 and 28.2. She will need to continue dual antiplatelet therapy to include aspirin 81 mg p.o. daily and Plavix 75 mg p.o. daily at discharge. She will also need to follow-up with Dr. Krishnan in 1-2 weeks with CBC, BMP with mag, and EKG. During hospitalization she has been started on a beta-odin and statin. She had previously been on an ANDREA inhibitor but this has been held. Ideally, we would like to resume this prior to discharge if her blood pressure will allow. She had a low blood pressure reading at lunch today. If this cannot be resumed prior to discharge, perhaps it can be addressed at her follow- up visit. Dr. Krishnan to follow with further plan and addendum. Exam (Progress Note) - Constitutional Vitals: Period Temp Pulse Resp BP Sys/Natarajan Pulse Ox Last 24 Hr 97.9 F-98.8 F 74-89 16-84 99-156/55-95 90-100 Result/EKG - Labs CBC & BMP: 11/06/16 05:22 11/06/16 05:21 Labs: Laboratory Results - last 24 hr 11/05/16 11/05/16 11/05/16 13:44 16:13 21:17 WBC RBC Hgb Hct MCV MCH MCHC RDW Plt Count MPV Neut % (Auto) Lymph % (Auto) [place] % (Auto) Eos % (Auto) Baso % (Auto) Neut # (Auto) Lymph # (Auto) [place] # (Auto) Eos # (Auto) Baso # (Auto) Immature Gran % Nucleated RBC % Immature Gran # Nucleated RBCs # Sodium Potassium Chloride Carbon Dioxide Anion Gap BUN Creatinine GFR Calculation BUN/Creatinine Ratio Glucose POC Glucose 236 H 207 H 252 H Calculated Osmolality Calcium Total Creatine Kinase CK-MB (CK-2) Troponin I 11/06/16 11/06/16 11/06/16 05:21 05:22 05:22 WBC 6.2 RBC 3.25 L Hgb 9.0 L Hct 28.2 L MCV 86.8 L MCH 28 MCHC 31.9 L RDW 14.0 Plt Count 169 MPV 11.2 Neut % (Auto) 57.8 Lymph % (Auto) 31.6 [place] % (Auto) 5.5 Eos % (Auto) 4.5 Baso % (Auto) 0.3 Neut # (Auto) 3.6 Lymph # (Auto) 2.0 [place] # (Auto) 0.3 Eos # (Auto) 0.3 Baso # (Auto) 0.0 Immature Gran % 0.3 Nucleated RBC % 0.0 Immature Gran # 0.02 Nucleated RBCs # 0.00 Sodium 147 H Potassium 3.9 Chloride 113 H Carbon Dioxide 28 Anion Gap 9.9 BUN 30 H Creatinine 1.60 H GFR Calculation 34 BUN/Creatinine Ratio 18.00 Glucose 78 POC Glucose Calculated Osmolality 296.4 Calcium 7.4 L Total Creatine Kinase 47 D CK-MB (CK-2) 2.7 Troponin I 1.590 H D 11/06/16 11/06/16 07:25 11:33 WBC RBC Hgb Hct MCV MCH MCHC RDW Plt Count MPV Neut % (Auto) Lymph % (Auto) [place] % (Auto) Eos % (Auto) Baso % (Auto) Neut # (Auto) Lymph # (Auto) [place] # (Auto) Eos # (Auto) Baso # (Auto) Immature Gran % Nucleated RBC % Immature Gran # Nucleated RBCs # Sodium Potassium Chloride Carbon Dioxide Anion Gap BUN Creatinine GFR Calculation BUN/Creatinine Ratio Glucose POC Glucose 71 L 80 Calculated Osmolality Calcium Total Creatine Kinase CK-MB (CK-2) Troponin I Specialty Discharge - Follow Up or Referrals Follow up with: Shlomo Alcala MD [Physician] - <Jesse Krishnan - Last Filed: 11/06/16 19:33> Cardiology - PN: Subj Interval history: Patient interviewed and examined and chart reviewed. I reviewed this case with Neyda Hopkins NP. I agree with the assessment and evaluation plans. The patient should be in to go home and follow-up as an outpatient. She will be continuing her medications. She has any problems or issues we will follow- up with with her before planned follow-up. Exam (Progress Note) - Constitutional Vitals: Period Temp Pulse Resp BP Sys/Natarajan Pulse Ox Last 24 Hr 97.9 F-99.1 F 74-82 16-20 99-137/55-65 90-100 Result/EKG - Labs CBC & BMP: 11/06/16 05:22 11/06/16 05:21 Labs: Laboratory Results - last 24 hr 11/05/16 11/06/16 11/06/16 21:17 05:21 05:22 WBC 6.2 RBC 3.25 L Hgb 9.0 L Hct 28.2 L MCV 86.8 L MCH 28 MCHC 31.9 L RDW 14.0 Plt Count 169 MPV 11.2 Neut % (Auto) 57.8 Lymph % (Auto) 31.6 [place] % (Auto) 5.5 Eos % (Auto) 4.5 Baso % (Auto) 0.3 Neut # (Auto) 3.6 Lymph # (Auto) 2.0 [place] # (Auto) 0.3 Eos # (Auto) 0.3 Baso # (Auto) 0.0 Immature Gran % 0.3 Nucleated RBC % 0.0 Immature Gran # 0.02 Nucleated RBCs # 0.00 Sodium 147 H Potassium 3.9 Chloride 113 H Carbon Dioxide 28 Anion Gap 9.9 BUN 30 H Creatinine 1.60 H GFR Calculation 34 BUN/Creatinine Ratio 18.00 Glucose 78 POC Glucose 252 H Calculated Osmolality 296.4 Calcium 7.4 L Total Creatine Kinase CK-MB (CK-2) Troponin I 11/06/16 11/06/16 11/06/16 05:22 07:25 11:33 WBC RBC Hgb Hct MCV MCH MCHC RDW Plt Count MPV Neut % (Auto) Lymph % (Auto) [place] % (Auto) Eos % (Auto) Baso % (Auto) Neut # (Auto) Lymph # (Auto) [place] # (Auto) Eos # (Auto) Baso # (Auto) Immature Gran % Nucleated RBC % Immature Gran # Nucleated RBCs # Sodium Potassium Chloride Carbon Dioxide Anion Gap BUN Creatinine GFR Calculation BUN/Creatinine Ratio Glucose POC Glucose 71 L 80 Calculated Osmolality Calcium Total Creatine Kinase 47 D CK-MB (CK-2) 2.7 Troponin I 1.590 H D 11/06/16 15:44 WBC RBC Hgb Hct MCV MCH MCHC RDW Plt Count MPV Neut % (Auto) Lymph % (Auto) [place] % (Auto) Eos % (Auto) Baso % (Auto) Neut # (Auto) Lymph # (Auto) [place] # (Auto) Eos # (Auto) Baso # (Auto) Immature Gran % Nucleated RBC % Immature Gran # Nucleated RBCs # Sodium Potassium Chloride Carbon Dioxide Anion Gap BUN Creatinine GFR Calculation BUN/Creatinine Ratio Glucose POC Glucose 142 H Calculated Osmolality Calcium Total Creatine Kinase CK-MB (CK-2) Troponin I
[2016-11-06 16:47] VITALS: BP 137/65
--- NOTE | 2016-11-06 17:00 | Discharge Summary ---
Hospital Course - Hospital Course Hospital Course: Oli is a 66-year-old female who was admitted to the hospitalist service with chest pain and elevated troponin. She underwent a left heart cath with stent. Her cath report shows stenting of the mid circumflex dissection with a drug- eluting stent. She is found to have a right dominant system with coronary artery disease including mid to distal 60% LAD disease as well as the mid circumflex dissection which was stented. She also has 60% mid to distal RCA stenosis. There was an incidental finding of 90% proximal right SFA stenosis and popliteal stenosis of approximately 70%. The patient underwent stenting by Dr. Chamorro and was started on appropriate medical therapy. She has not had a recurrence of chest pain during this hospitalization. Her groin/cath site does not show any evidence of hematoma or bleeding. She has been cleared for discharge with routine post cath instructions. She is given a prescription for Plavix on discharge. She is to follow-up with her primary care physician and rn ed. Echocardiogram shows an ejection fraction of 55-60%. She is also noted to have elevated cholesterol and was continued on a statin. Other medication changes include starting Coreg. The patient was on lisinopril however the dose was reduced secondary to hypotension. - Time spent with patient Time with patient DS: Greater than 30 minutes (Total discharge time for this patient, including [id number] time, clinical documentation, medication reconciliation, and discharge planning was 37 minutes.) Diagnosis - Discharge Diagnosis (1) NSTEMI (non-ST elevated myocardial infarction) Status: Acute (2) Elevated troponin Status: Acute (3) Hypertension Status: Chronic (4) Hyperlipidemia Status: Chronic (5) Diabetes Status: Chronic Specialty Discharge - Follow Up or Referrals Discharge Plan - Discharge Data Disposition: Disch To Home/Self Care Condition at Discharge: Stable Discharge Diet: diabetic diet, heart healthy Activity: as per the cardiac rehab, as per physical therapy, increase activity as tolerated - Discharge Medications New Lisinopril 2.5 mg PO DAILY #30 tablet Nitroglycerin Sl Tab [Nitrostat] 0.4 mg SL Q5M PRN #1 bottle PRN Reason: Chest Pain Atorvastatin [Lipitor] 40 mg PO DAILY #30 tablet Carvedilol [Coreg] 3.125 mg PO BID #60 tablet Continue Fenofibrate [Tricor] 145 mg PO DAILY [place]-3/Dha/Epa/Fish Oil [Fish Oil 1,000 mg Softgel] 1 each PO DAILY Insulin Detemir [Levemir] 55 unit SUBCUT BEDTIME Aspirin 81 mg PO DAILY #100 tablet Clopidogrel [Plavix] 75 mg PO DAILY #30 tablet metFORMIN [Glucophage] 500 mg PO BID W/MEALS Discontinued Lisinopril 40 mg PO DAILY - Follow Up or Referral Follow Up: Shlomo Alcala MD [Physician] - - Forms/Instructions Instructions: Left Heart Catheterization (DC), Heart Healthy Diet (GEN), Coronary Intravascular Stent Placement, Surgical Consultant (GEN) Exam - Constitutional Vitals: Period Temp Pulse Resp BP Sys/Natarajan Pulse Ox Last 24 Hr 97.9 F-99.1 F 74-89 16-84 99-156/55-95 90-100 Discharge Results Procedures and tests throughout hospitalization: Pending Orders 11/07/16 04:00 Basic Metabolic Panel IN AM Labs on day of discharge: Labs from last 24 hours 11/06/16 11/06/16 11/06/16 15:44 11:33 07:25 WBC RBC Hgb Hct MCV MCH MCHC RDW Plt Count MPV Neut % (Auto) Lymph % (Auto) [place] % (Auto) Eos % (Auto) Baso % (Auto) Neut # (Auto) Lymph # (Auto) [place] # (Auto) Eos # (Auto) Baso # (Auto) Immature Gran % Nucleated RBC % Immature Gran # Nucleated RBCs # Sodium Potassium Chloride Carbon Dioxide Anion Gap BUN Creatinine GFR Calculation BUN/Creatinine Ratio Glucose POC Glucose 142 H 80 71 L Calculated Osmolality Calcium Total Creatine Kinase CK-MB (CK-2) Troponin I 11/06/16 11/06/16 11/06/16 05:22 05:22 05:21 WBC 6.2 RBC 3.25 L Hgb 9.0 L Hct 28.2 L MCV 86.8 L MCH 28 MCHC 31.9 L RDW 14.0 Plt Count 169 MPV 11.2 Neut % (Auto) 57.8 Lymph % (Auto) 31.6 [place] % (Auto) 5.5 Eos % (Auto) 4.5 Baso % (Auto) 0.3 Neut # (Auto) 3.6 Lymph # (Auto) 2.0 [place] # (Auto) 0.3 Eos # (Auto) 0.3 Baso # (Auto) 0.0 Immature Gran % 0.3 Nucleated RBC % 0.0 Immature Gran # 0.02 Nucleated RBCs # 0.00 Sodium 147 H Potassium 3.9 Chloride 113 H Carbon Dioxide 28 Anion Gap 9.9 BUN 30 H Creatinine 1.60 H GFR Calculation 34 BUN/Creatinine Ratio 18.00 Glucose 78 POC Glucose Calculated Osmolality 296.4 Calcium 7.4 L Total Creatine Kinase 47 D CK-MB (CK-2) 2.7 Troponin I 1.590 H D 11/05/16 21:17 WBC RBC Hgb Hct MCV MCH MCHC RDW Plt Count MPV Neut % (Auto) Lymph % (Auto) [place] % (Auto) Eos % (Auto) Baso % (Auto) Neut # (Auto) Lymph # (Auto) [place] # (Auto) Eos # (Auto) Baso # (Auto) Immature Gran % Nucleated RBC % Immature Gran # Nucleated RBCs # Sodium Potassium Chloride Carbon Dioxide Anion Gap BUN Creatinine GFR Calculation BUN/Creatinine Ratio Glucose POC Glucose 252 H Calculated Osmolality Calcium Total Creatine Kinase CK-MB (CK-2) Troponin I - Imaging and Cardiology Cardiology Procedure: report reviewed by me DS: Provider Date of admission: 11/04/16 19:15 Primary care physician: . No PCP Attending physician on admission: Jesse Ball MD Consults: 11/04/16 19:39 Consult to Physician [CONS] Routine Comment: Consulting Provider: Cardiology - [facility] Consult to Specialist Group: Cardiology Person Notified: SONIA Date Notified: 11/05/16 Time Notified: 07:55 11/04/16 21:39 Consult to Pastoral Services [CONS] Routine Comment: Pastoral Screen: Request Family Resource Specialist Visit 11/05/16 12:34 Consult to Cardiac Rehabilitation [CONS] Routine Reason for Cardiac Rehabilitation: Appt Out Pt Cardiac Rehab Consult Comment: nstemi; stent Discharging clinician: Jean Claude Chow MD Expected date of discharge: 11/06/16
== END 2016-11-06 17:45 | disposition home or self-care (01) | DRG 246 ==
LOC: EDUNIT# → EDBD → N.ED 18:44 → N.EDINP 19:15 → SUATTDRO 19:15 → N.TELES 20:52
PROVIDERS: ADMIT Internal Medicine; ATTEND Family Medicine

== ENCOUNTER 2017-04-24 20:15 | Inpatient (IN) ==
[2017-04-24] MEDS ORDERED: GLUCAGON 1 MG VIAL IM PRN (20:39)
[2017-04-24] MEDS ORDERED: ONDANSETRON 4 MG/2 ML VIAL IV PRN (20:39)
[2017-04-24] MEDS ORDERED: DEXTROSE 50% 25 GM/50 ML VIAL IV PRN (20:39)
[2017-04-24] MEDS ORDERED: ZALEPLON 5 MG CAPSULE PO PRN (20:39)
[2017-04-25] MEDS: INSULIN REGULAR 100 UNIT/ML SUBCUT SCH ×5 (01:00→20:54)
[2017-04-25 05:36] LABS: Basophils % 0.6 % (0.0-0.8); Eosinophils # 0.1 10*3/uL (0.0-0.87); Eosinophils % 1.1 % (0.00-10.9); Hematocrit 35.4 VOL% (35.7-47.0); Hemoglobin 11.6 GM/DL (12.0-16.0); Immature Granulocytes % 0.3 %; Immature Granulocytes Absolute 0.02 #; Lymphocytes # 2.1 10*3/uL (1.4-4.0); Lymphocytes % 34.4 % (21.3-54.2); Mean Corpuscular HGB Conc 32.8 GM/DL (32-36); Mean Corpuscular Hemoglobin 29 PG (27-34); Mean Corpuscular Volume 87.6 FL (87-102); Mean Platelet Volume 12.6 FL (9.6-12.0); Monocytes # 0.4 10*3/uL (0.11-0.8); Monocytes % 5.8 % (1.7-12.7); Neutrophils # 3.6 10*3/uL (1.4-7.4); Neutrophils % 57.8 % (38.7-73.9); Platelet Count 155 T/CUMM (130-400); Red Blood Count 4.04 MC/CUMM (3.8-5.5); Red Cell Distribution Width 13.5 % (9.3-17.3); White Blood Count 6.2 T/CUMM (4-12)
[2017-04-25 06:13] LABS: Alanine Aminotransferase < 9 U/L (13-56); Alkaline Phosphatase 69 U/L (45-117); Aspartate Amino Transferase 16 U/L (0-37); Blood Urea Nitrogen 24 MG/DL (7-18); Glucose 146 MG/DL (74-106); Osmolality,Calculated 296.6 MOS/KG (273-304); Potassium 3.7 MMOL/L (3.5-5.1); Sodium 146 MMOL/L (136-145); Total Protein 5.3 G/DL (6.4-8.3)
[2017-04-25] MEDS: PANTOPRAZOLE 40 MG TABLET PO SCH (09:31)
[2017-04-25] MEDS ORDERED: FUROSEMIDE 100 MG/10 ML VIAL IV ONE (15:00)
[2017-04-25] MEDS: CARVEDILOL 3.125 MG TABLET PO SCH (17:39)
[2017-04-26] MEDS: PANTOPRAZOLE 40 MG TABLET PO SCH (09:16)
[2017-04-26] MEDS: INSULIN REGULAR 100 UNIT/ML SUBCUT SCH ×4 (09:16→21:05)
[2017-04-26] MEDS: CARVEDILOL 3.125 MG TABLET PO SCH ×2 (09:16→16:33)
[2017-04-26] MEDS: ASPIRIN CHEW 81 MG TABLET PO SCH (18:21)
[2017-04-26] MEDS ORDERED: diphenhydrAMINE 50 MG/1 ML VIAL IV ONE (19:35)
[2017-04-27 06:26] LABS: Basophils % 0.4 % (0.0-0.8); Eosinophils # 0.5 10*3/uL (0.0-0.87); Eosinophils % 6.8 % (0.00-10.9); Hematocrit 33.6 VOL% (35.7-47.0); Hemoglobin 11.1 GM/DL (12.0-16.0); Immature Granulocytes % 0.1 %; Immature Granulocytes Absolute 0.01 #; Lymphocytes # 2.6 10*3/uL (1.4-4.0); Lymphocytes % 38.8 % (21.3-54.2); Mean Corpuscular Hemoglobin 29 PG (27-34); Mean Corpuscular Volume 86.8 FL (87-102); Mean Platelet Volume 12.1 FL (9.6-12.0); Monocytes # 0.4 10*3/uL (0.11-0.8); Monocytes % 6.5 % (1.7-12.7); Neutrophils # 3.2 10*3/uL (1.4-7.4); Neutrophils % 47.4 % (38.7-73.9); Platelet Count 143 T/CUMM (130-400); Red Blood Count 3.87 MC/CUMM (3.8-5.5); Red Cell Distribution Width 13.4 % (9.3-17.3); White Blood Count 6.8 T/CUMM (4-12)
[2017-04-27 06:54] LABS: Calcium 7.6 MG/DL (8.5-10.1); Free T4 (Free Thyroxine) 1.3 NG/DL (0.76-1.46); Magnesium 2.1 MG/DL (1.8-2.4); Osmolality,Calculated 297.8 MOS/KG (273-304); Potassium 3.6 MMOL/L (3.5-5.1); Risk Ratio 8.76; Thyroid Stimulating Hormone 3.75 uIU/ml (0.358-3.74); VLDL CHOLESTEROL 41.4 MG/DL
[2017-04-27] MEDS: INSULIN REGULAR 100 UNIT/ML SUBCUT SCH ×4 (09:46→20:58)
[2017-04-27] MEDS: ASPIRIN CHEW 81 MG TABLET PO SCH (09:47)
[2017-04-27] MEDS: PANTOPRAZOLE 40 MG TABLET PO SCH (09:47)
[2017-04-27] MEDS: CARVEDILOL 3.125 MG TABLET PO SCH ×2 (09:47→16:46)
[2017-04-27] MEDS: MORPHINE 2 MG/1 ML SYRINGE IV PRN (10:32)
[2017-04-28 06:54] LABS: Basophils % 0.6 % (0.0-0.8); Eosinophils # 0.3 10*3/uL (0.0-0.87); Eosinophils % 4.9 % (0.00-10.9); Hemoglobin 11.5 GM/DL (12.0-16.0); Immature Granulocytes % 0.3 %; Immature Granulocytes Absolute 0.02 #; Lymphocytes # 2.6 10*3/uL (1.4-4.0); Lymphocytes % 38.1 % (21.3-54.2); Mean Corpuscular HGB Conc 32.9 GM/DL (32-36); Mean Corpuscular Hemoglobin 29 PG (27-34); Mean Corpuscular Volume 87.7 FL (87-102); Monocytes # 0.4 10*3/uL (0.11-0.8); Monocytes % 6.5 % (1.7-12.7); Neutrophils # 3.3 10*3/uL (1.4-7.4); Neutrophils % 49.6 % (38.7-73.9); Platelet Count 158 T/CUMM (130-400); Red Blood Count 3.99 MC/CUMM (3.8-5.5); Red Cell Distribution Width 13.3 % (9.3-17.3); White Blood Count 6.7 T/CUMM (4-12)
[2017-04-28 07:22] LABS: Calcium 7.8 MG/DL (8.5-10.1); Magnesium 2.3 MG/DL (1.8-2.4); Potassium 3.6 MMOL/L (3.5-5.1)
[2017-04-28] MEDS: INSULIN REGULAR 100 UNIT/ML SUBCUT SCH ×4 (09:00→21:47)
[2017-04-28] MEDS: CARVEDILOL 3.125 MG TABLET PO SCH ×2 (14:46→21:43)
[2017-04-28] MEDS: ASPIRIN CHEW 81 MG TABLET PO SCH (14:46)
[2017-04-28] MEDS: PANTOPRAZOLE 40 MG TABLET PO SCH (14:51)
[2017-04-29 06:48] LABS: Basophils % 0.3 % (0.0-0.8); Eosinophils # 0.3 10*3/uL (0.0-0.87); Eosinophils % 5.3 % (0.00-10.9); Hematocrit 31.8 VOL% (35.7-47.0); Hemoglobin 10.5 GM/DL (12.0-16.0); Immature Granulocytes % 0.3 %; Immature Granulocytes Absolute 0.02 #; Lymphocytes # 2.5 10*3/uL (1.4-4.0); Lymphocytes % 40.8 % (21.3-54.2); Mean Corpuscular Hemoglobin 29 PG (27-34); Mean Corpuscular Volume 87.4 FL (87-102); Mean Platelet Volume 12.1 FL (9.6-12.0); Monocytes # 0.4 10*3/uL (0.11-0.8); Monocytes % 7.1 % (1.7-12.7); Neutrophils # 2.9 10*3/uL (1.4-7.4); Neutrophils % 46.2 % (38.7-73.9); Platelet Count 161 T/CUMM (130-400); Red Blood Count 3.64 MC/CUMM (3.8-5.5); Red Cell Distribution Width 13.4 % (9.3-17.3); White Blood Count 6.2 T/CUMM (4-12)
[2017-04-29 07:26] LABS: Alanine Aminotransferase < 6 U/L (13-56); Albumin 1.8 G/DL (3.4-5.0); Alkaline Phosphatase 62 U/L (45-117); Aspartate Amino Transferase 12 U/L (0-37); Blood Urea Nitrogen 33 MG/DL (7-18); Calcium 7.9 MG/DL (8.5-10.1); Glucose 177 MG/DL (74-106); Osmolality,Calculated 296.8 MOS/KG (273-304); Sodium 144 MMOL/L (136-145); Total Protein 4.9 G/DL (6.4-8.3)
[2017-04-29] MEDS: INSULIN REGULAR 100 UNIT/ML SUBCUT SCH ×4 (09:00→21:15)
[2017-04-29] MEDS: PANTOPRAZOLE 40 MG TABLET PO SCH (10:54)
[2017-04-29] MEDS: CARVEDILOL 3.125 MG TABLET PO SCH ×2 (10:54→17:01)
[2017-04-29] MEDS: ASPIRIN CHEW 81 MG TABLET PO SCH (10:55)
[2017-04-29] MEDS: MORPHINE 2 MG/1 ML SYRINGE IV PRN (18:30)
[2017-04-29] MEDS: ATORVASTATIN 40 MG TABLET PO SCH (21:15)
[2017-04-30 06:55] LABS: Basophils % 0.5 % (0.0-0.8); Eosinophils # 0.4 10*3/uL (0.0-0.87); Eosinophils % 6.2 % (0.00-10.9); Hematocrit 32.8 VOL% (35.7-47.0); Hemoglobin 10.8 GM/DL (12.0-16.0); Immature Granulocytes % 0.2 %; Immature Granulocytes Absolute 0.01 #; Lymphocytes # 2.7 10*3/uL (1.4-4.0); Lymphocytes % 47.5 % (21.3-54.2); Mean Corpuscular HGB Conc 32.9 GM/DL (32-36); Mean Corpuscular Hemoglobin 29 PG (27-34); Mean Corpuscular Volume 87.2 FL (87-102); Mean Platelet Volume 12.1 FL (9.6-12.0); Monocytes # 0.4 10*3/uL (0.11-0.8); Monocytes % 6.7 % (1.7-12.7); Neutrophils # 2.2 10*3/uL (1.4-7.4); Neutrophils % 38.9 % (38.7-73.9); Platelet Count 169 T/CUMM (130-400); Red Blood Count 3.76 MC/CUMM (3.8-5.5); Red Cell Distribution Width 13.4 % (9.3-17.3); White Blood Count 5.7 T/CUMM (4-12)
[2017-04-30 07:24] LABS: Calcium 7.9 MG/DL (8.5-10.1); Magnesium 2.3 MG/DL (1.8-2.4); Osmolality,Calculated 291.8 MOS/KG (273-304); Potassium 3.9 MMOL/L (3.5-5.1)
[2017-04-30] MEDS: INSULIN REGULAR 100 UNIT/ML SUBCUT SCH ×4 (07:32→21:40)
[2017-04-30] MEDS: CARVEDILOL 3.125 MG TABLET PO SCH ×2 (09:18→17:00)
[2017-04-30] MEDS: PANTOPRAZOLE 40 MG TABLET PO SCH (09:18)
[2017-04-30] MEDS: ASPIRIN CHEW 81 MG TABLET PO SCH (09:18)
[2017-04-30] MEDS ORDERED: TUBERCULIN SKIN TEST 0.1 ML SYRINGE INTRADERM ONE (16:09)
[2017-04-30] MEDS: MORPHINE 2 MG/1 ML SYRINGE IV PRN (17:09)
[2017-04-30] MEDS: ATORVASTATIN 40 MG TABLET PO SCH (21:40)
[2017-05-01] MEDS: INSULIN REGULAR 100 UNIT/ML SUBCUT SCH ×4 (07:21→21:03)
[2017-05-01] MEDS: CARVEDILOL 3.125 MG TABLET PO SCH ×2 (08:39→17:09)
[2017-05-01] MEDS: ASPIRIN CHEW 81 MG TABLET PO SCH (08:39)
[2017-05-01] MEDS: PANTOPRAZOLE 40 MG TABLET PO SCH (08:40)
[2017-05-01] MEDS: ATORVASTATIN 40 MG TABLET PO SCH (21:03)
[2017-05-02] MEDS: MORPHINE 2 MG/1 ML SYRINGE IV PRN (01:51)
[2017-05-02] MEDS: INSULIN REGULAR 100 UNIT/ML SUBCUT SCH ×2 (08:38→11:35)
[2017-05-02] MEDS: CARVEDILOL 3.125 MG TABLET PO SCH (08:39)
[2017-05-02] MEDS: PANTOPRAZOLE 40 MG TABLET PO SCH (08:39)
[2017-05-02] MEDS: ASPIRIN CHEW 81 MG TABLET PO SCH (08:39)
[2017-05-02 11:05] VITALS: BP 146/71
== END 2017-05-02 14:00 | disposition home health service (06) | DRG 64 ==
LOC: SUATTDRO 21:56 → N.3E 21:56
PROVIDERS: ADMIT Internal Medicine; ATTEND Internal Medicine Geriatric Medicine

== ENCOUNTER 2017-06-06 06:46 | Inpatient (IN) ==
[2017-06-06] MEDS ORDERED: LIDOCAINE 1% 20 ML VIAL MISC INJ PRN (07:00)
[2017-06-06] MEDS ORDERED: MIDAZOLAM 10 MG/2 ML VIAL IV PRN (07:00)
[2017-06-06] MEDS ORDERED: MEPERIDINE 50 MG/1 ML VIAL IM ONE (07:00)
[2017-06-06] MEDS ORDERED: GLYCOPYRROLATE 0.4 MG/2 ML VIAL IM ONE (07:00)
[2017-06-06] MEDS ORDERED: PROMETHAZINE 25 MG/1 ML VIAL IM ONE (07:00)
[2017-06-06] MEDS ORDERED: PROMETHAZINE 25 MG/1 ML VIAL ONE (07:13)
[2017-06-06] MEDS ORDERED: MEPERIDINE 50 MG/1 ML VIAL ONE (07:13)
[2017-06-06] MEDS ORDERED: GLYCOPYRROLATE 0.4 MG/2 ML VIAL ONE (07:13)
[2017-06-06] MEDS ORDERED: MIDAZOLAM 2 MG/2 ML VIAL ONE (09:07)
[2017-06-07] MEDS ORDERED: NITROGLYCERIN SL 0.4 MG TABLET SL PRN (09:41)
[2017-06-07] MEDS ORDERED: GLUCAGON 1 MG VIAL IM PRN (09:43)
[2017-06-07] MEDS ORDERED: DEXTROSE 50% 25 GM/50 ML VIAL IV PRN (09:43)
[2017-06-07] MEDS: CARVEDILOL 3.125 MG TABLET PO SCH ×2 (11:32→17:42)
[2017-06-07] MEDS: amLODIPine 5 MG TABLET PO SCH (11:33)
[2017-06-07] MEDS: ATORVASTATIN 40 MG TABLET PO SCH (11:33)
[2017-06-07] MEDS: ASPIRIN CHEW 81 MG TABLET PO SCH (11:33)
[2017-06-07] MEDS: FUROSEMIDE 40 MG TABLET PO SCH (11:33)
[2017-06-07] MEDS: PANTOPRAZOLE 40 MG TABLET PO SCH (11:33)
[2017-06-07] MEDS: FERROUS SULFATE 325 MG TABLET PO SCH ×2 (17:38→20:06)
[2017-06-07] MEDS: GABAPENTIN 300 MG CAPSULE PO SCH (20:06)
[2017-06-08 02:36] LABS: Calcium 7.3 MG/DL (8.5-10.1); Osmolality,Calculated 295.4 MOS/KG (273-304)
[2017-06-08 02:55] LABS: Basophils % 0.8 % (0.0-0.8); Eosinophils # 0.5 10*3/uL (0.0-0.87); Eosinophils % 10.8 % (0.00-10.9); Hematocrit 30.7 VOL% (35.7-47.0); Hemoglobin 9.9 GM/DL (12.0-16.0); Immature Granulocytes % 0.4 %; Immature Granulocytes Absolute 0.02 #; Lymphocytes % 41.3 % (21.3-54.2); Mean Corpuscular HGB Conc 32.2 GM/DL (32-36); Mean Corpuscular Hemoglobin 27 PG (27-34); Mean Corpuscular Volume 84.1 FL (87-102); Mean Platelet Volume 12.2 FL (9.6-12.0); Monocytes # 0.4 10*3/uL (0.11-0.8); Monocytes % 9.1 % (1.7-12.7); Neutrophils # 1.8 10*3/uL (1.4-7.4); Neutrophils % 37.6 % (38.7-73.9); Platelet Count 195 T/CUMM (130-400); Red Blood Count 3.65 MC/CUMM (3.8-5.5); Red Cell Distribution Width 14.6 % (9.3-17.3); White Blood Count 4.8 T/CUMM (4-12)
[2017-06-08 07:42] LABS: Eosinophils 2 % (0-10); Hypochromasia 1+; Lymphocytes 43 % (20-55); Platelet Estimate Adequate; Segmented Neutrophils 51 % (50-85); Total Cells Counted 100
[2017-06-08] MEDS ORDERED: POTASSIUM CHLORIDE 20 MEQ TABLET PO ONE (08:08)
[2017-06-08] MEDS: ATORVASTATIN 40 MG TABLET PO SCH (09:54)
[2017-06-08] MEDS: CARVEDILOL 3.125 MG TABLET PO SCH ×2 (09:54→17:13)
[2017-06-08] MEDS: PANTOPRAZOLE 40 MG TABLET PO SCH (09:54)
[2017-06-08] MEDS: OMEGA 3 ACID ETHYL ESTERS 1 GM CAPSULE PO SCH (09:54)
[2017-06-08] MEDS: FENOFIBRATE 145 MG TABLET PO SCH (09:54)
[2017-06-08] MEDS: FERROUS SULFATE 325 MG TABLET PO SCH ×3 (09:54→20:32)
[2017-06-08] MEDS: amLODIPine 5 MG TABLET PO SCH (09:55)
[2017-06-08] MEDS: ASPIRIN CHEW 81 MG TABLET PO SCH (09:55)
[2017-06-08] MEDS: CLOPIDOGREL 75 MG TABLET PO SCH (09:55)
[2017-06-08] MEDS: FUROSEMIDE 40 MG TABLET PO SCH (09:55)
[2017-06-08] MEDS: GABAPENTIN 300 MG CAPSULE PO SCH (20:32)
[2017-06-09] MEDS: CARVEDILOL 3.125 MG TABLET PO SCH ×2 (10:29→16:52)
[2017-06-09] MEDS: ASPIRIN CHEW 81 MG TABLET PO SCH (10:30)
[2017-06-09] MEDS: FERROUS SULFATE 325 MG TABLET PO SCH ×3 (10:30→21:32)
[2017-06-09] MEDS: OMEGA 3 ACID ETHYL ESTERS 1 GM CAPSULE PO SCH (10:33)
[2017-06-09] MEDS: ATORVASTATIN 40 MG TABLET PO SCH (10:33)
[2017-06-09] MEDS: amLODIPine 5 MG TABLET PO SCH (10:33)
[2017-06-09] MEDS: POTASSIUM CHLORIDE 20 MEQ TABLET PO SCH (10:33)
[2017-06-09] MEDS: FUROSEMIDE 40 MG TABLET PO SCH (10:33)
[2017-06-09] MEDS: CLOPIDOGREL 75 MG TABLET PO SCH (10:34)
[2017-06-09] MEDS: PANTOPRAZOLE 40 MG TABLET PO SCH (10:34)
[2017-06-09] MEDS: FENOFIBRATE 145 MG TABLET PO SCH (10:34)
[2017-06-09] MEDS: GABAPENTIN 300 MG CAPSULE PO SCH (21:32)
[2017-06-10] MEDS: FERROUS SULFATE 325 MG TABLET PO SCH (10:19)
[2017-06-10] MEDS: ASPIRIN CHEW 81 MG TABLET PO SCH (10:19)
[2017-06-10] MEDS: CARVEDILOL 3.125 MG TABLET PO SCH (10:19)
[2017-06-10] MEDS: POTASSIUM CHLORIDE 20 MEQ TABLET PO SCH (10:19)
[2017-06-10] MEDS: OMEGA 3 ACID ETHYL ESTERS 1 GM CAPSULE PO SCH (10:20)
[2017-06-10] MEDS: amLODIPine 5 MG TABLET PO SCH (10:20)
[2017-06-10] MEDS: ATORVASTATIN 40 MG TABLET PO SCH (10:20)
[2017-06-10] MEDS: FUROSEMIDE 40 MG TABLET PO SCH (10:20)
[2017-06-10] MEDS: PANTOPRAZOLE 40 MG TABLET PO SCH (10:20)
[2017-06-10] MEDS: CLOPIDOGREL 75 MG TABLET PO SCH (10:20)
[2017-06-10] MEDS: FENOFIBRATE 145 MG TABLET PO SCH (10:21)
[2017-06-10 11:35] VITALS: BP 167/86
[2017-06-14] MEDS ORDERED: CYANOCOBALAMIN 500 MCG TABLET PO SCH (09:00)
== END 2017-06-10 14:50 | disposition home health service (06) | DRG 291 ==
LOC: N.PULM 06:46 → N.SDSINP 06:50 → N.3E 15:44
PROVIDERS: ADMIT Internal Medicine Pulmonary Disease; ATTEND Internal Medicine Pulmonary Disease

== ENCOUNTER 2017-11-21 17:39 | Inpatient (IN) ==
[2017-11-21] MEDS ORDERED: PROPOFOL 1,000 MG/100 ML BOTTLE IV ONE (20:25)
[2017-11-21] MEDS: PROPOFOL 1,000 MG/100 ML BOTTLE IV SCH (20:28)
[2017-11-21 20:30] LABS: ABG Base Excess -4.1 MMOL/L (-2.5-2.5); ABG Oxygen Saturation 95.5 % (95-100); ABG PCO2 41.3 MM HG (35-48); ABG PH 7.328 (7.35-7.45); ABG PO2 83.2 MM HG (80-95); ABG TCO2 19.4 MMOL/L (23-27)
[2017-11-21] MEDS ORDERED: DOPamine 800 MG/250 ML PREMIX IV PRN (20:32)
[2017-11-21 20:56] LABS: Basophils % 0.2 % (0.0-0.8); Hematocrit 39.2 VOL% (35.7-47.0); Immature Granulocytes % 0.7 %; Immature Granulocytes Absolute 0.09 #; Lymphocytes # 0.3 10*3/uL (1.4-4.0); Lymphocytes % 2.4 % (21.3-54.2); Mean Corpuscular HGB Conc 30.6 GM/DL (32-36); Mean Corpuscular Hemoglobin 27 PG (27-34); Mean Corpuscular Volume 87.9 FL (87-102); Mean Platelet Volume 12.5 FL (9.6-12.0); Monocytes # 0.3 10*3/uL (0.11-0.8); Monocytes % 1.9 % (1.7-12.7); Neutrophils # 12.4 10*3/uL (1.4-7.4); Neutrophils % 94.8 % (38.7-73.9); Platelet Count 147 T/CUMM (130-400); Red Blood Count 4.46 MC/CUMM (3.8-5.5); Red Cell Distribution Width 14.6 % (9.3-17.3); White Blood Count 13.1 T/CUMM (4-12)
[2017-11-21 21:19] LABS: Band Neutrophils 11 % (0-10); Lymphocytes 3 % (20-55); Segmented Neutrophils 86 % (50-85)
[2017-11-21 21:20] LABS: Total Cells Counted 100
[2017-11-21 21:21] LABS: Platelet Estimate Normal
[2017-11-21 21:24] LABS: Troponin I Only 0.648 NG/ML (0.00-0.045)
[2017-11-21 21:27] LABS: Bilirubin,Total 0.9 MG/DL (0.2-1.0); Calcium 7.4 MG/DL (8.5-10.1); Osmolality,Calculated 307.1 MOS/KG (273-304); Potassium 3.7 MMOL/L (3.5-5.1); Total Protein 5.6 G/DL (6.4-8.3)
[2017-11-21] MEDS ORDERED: LACTATED RINGERS 500 ML IV ONE (21:33)
[2017-11-21] MEDS ORDERED: VANCOMYCIN INJ 1,000 MG in SODIUM CHLORIDE 0.9% 250 ML IV ONE (22:00)
[2017-11-21] MEDS ORDERED: LACTATED RINGERS 1,000 ML IV SCH (23:00)
[2017-11-21] MEDS ORDERED: DEXTROSE 50% 25 GM/50 ML VIAL IV PRN (23:02)
[2017-11-21] MEDS ORDERED: GLUCAGON 1 MG VIAL IM PRN (23:02)
[2017-11-22] MEDS: INSULIN LISPRO 100 UNIT/ML SUBCUT SCH ×4 (01:05→17:30)
[2017-11-22] MEDS: PIPERACILLIN/TAZOBACTAM 3,375 MG in SODIUM CHLORIDE 0.9% 100 ML IV SCH ×3 (01:27→15:24)
[2017-11-22] MEDS ORDERED: LACTATED RINGERS 250 ML IV ONE (03:23)
[2017-11-22 04:27] LABS: ABG Base Excess -4.2 MMOL/L (-2.5-2.5); ABG HCO3 20.9 MMOL/L (20-26); ABG Oxygen Saturation 99.4 % (95-100); ABG PCO2 36.1 MM HG (35-48); ABG PH 7.363 (7.35-7.45); ABG TCO2 18.4 MMOL/L (23-27); Allen Test Positive; Pt O2 Delivery Device Ventilator
[2017-11-22 05:21] LABS: Bilirubin,Total 0.9 MG/DL (0.2-1.0); Calcium 7.7 MG/DL (8.5-10.1); Osmolality,Calculated 306.1 MOS/KG (273-304); Potassium 4.2 MMOL/L (3.5-5.1); Total Protein 5.5 G/DL (6.4-8.3)
[2017-11-22 05:30] LABS: Basophils % 0.2 % (0.0-0.8); Hematocrit 39.5 VOL% (35.7-47.0); Immature Granulocytes % 1.3 %; Immature Granulocytes Absolute 0.23 #; Lymphocytes # 0.7 10*3/uL (1.4-4.0); Mean Corpuscular HGB Conc 30.4 GM/DL (32-36); Mean Corpuscular Hemoglobin 27 PG (27-34); Mean Corpuscular Volume 88.8 FL (87-102); Mean Platelet Volume 13.2 FL (9.6-12.0); Monocytes # 0.8 10*3/uL (0.11-0.8); Monocytes % 4.3 % (1.7-12.7); Neutrophils # 16.2 10*3/uL (1.4-7.4); Neutrophils % 90.2 % (38.7-73.9); Platelet Count 139 T/CUMM (130-400); Red Blood Count 4.45 MC/CUMM (3.8-5.5); Red Cell Distribution Width 14.5 % (9.3-17.3)
[2017-11-22] MEDS: SODIUM CHLORIDE 0.45% 1,000 ML IV SCH ×2 (06:43→16:50)
[2017-11-22 06:45] LABS: Anisocytosis 1+; Band Neutrophils 3 % (0-10); Lymphocytes 6 % (20-55); Myelocytes 3 %; Segmented Neutrophils 87 % (50-85); Total Cells Counted 100
[2017-11-22 06:46] LABS: Ovalocytes 1+; Platelet Estimate Adequate
[2017-11-22 07:40] LABS: Amorphous Crystals,Urine Occasional /HPF (Few); Apearance,Urine CLOUDY (Clear); Bacteria,Urine Occasional /HPF (Few); Bilirubin,Urine Negative (Negative); Blood, Urine Small mg/dL (Negative); Glucose,Urine (UA) 50 mg/dL (Negative); Hyaline Casts,Urine 22 /LPF (0-3); Ketones,Urine Negative (Negative); Mucus,Urine Occasional /LPF (Occasional); Nitrite,Urine Negative (Negative); Protein,Urine >=500 MG/DL; RBC,Urine 2 /HPF (0-4); Squamous Epithelial Cell,Urine Occasional /HPF (0-10); Urine Specific Gravity 1.018 (1.001-1.035); Urine Urobilinogen < 2.0 EU/DL (0.2-1.0); WBC,Urine 3 /HPF (0-6)
[2017-11-22 07:42] LABS: Urine Color Yellow (Yellow)
[2017-11-22] MEDS ORDERED: NOREPINEPHRINE 8 MG in SODIUM CHLORIDE 0.9% 242 ML IV PRN (08:01)
[2017-11-22] MEDS: ASPIRIN CHEW 81 MG TABLET PO SCH (09:07)
[2017-11-22] MEDS: CLOPIDOGREL 75 MG TABLET PO SCH (09:08)
[2017-11-22] MEDS: PANTOPRAZOLE 40 MG VIAL IV SCH (09:08)
[2017-11-22] MEDS ORDERED: SODIUM CHLORIDE 0.9% 500 ML IV ONE (13:42)
[2017-11-22] MEDS: ENOXAPARIN 30 MG/0.3 ML SYRINGE SUBCUT SCH (13:43)
[2017-11-22] MEDS: PROPOFOL 1,000 MG/100 ML BOTTLE IV SCH (15:20)
[2017-11-22 20:35] LABS: Calcium 7.5 MG/DL (8.5-10.1); Osmolality,Calculated 300.6 MOS/KG (273-304); Potassium 4.1 MMOL/L (3.5-5.1)
[2017-11-22 21:17] LABS: Allen Test Positive; Pt O2 Delivery Device Ventilator
[2017-11-22 21:18] LABS: ABG Base Excess -4.9 MMOL/L (-2.5-2.5); ABG HCO3 20.4 MMOL/L (20-26); ABG Oxygen Saturation 99.3 % (95-100); ABG PCO2 31.7 MM HG (35-48); ABG PH 7.388 (7.35-7.45)
[2017-11-22 21:35] LABS: Basophils # 0.1 10*3/uL (0.0-0.2); Basophils % 0.4 % (0.0-0.8); Eosinophils # 0.1 10*3/uL (0.0-0.87); Eosinophils % 0.4 % (0.00-10.9); Immature Granulocytes % 1.9 %; Immature Granulocytes Absolute 0.31 #; Lymphocytes # 1.5 10*3/uL (1.4-4.0); Lymphocytes % 9.3 % (21.3-54.2); Mean Corpuscular HGB Conc 30.8 GM/DL (32-36); Mean Corpuscular Hemoglobin 26 PG (27-34); Mean Corpuscular Volume 85.5 FL (87-102); Mean Platelet Volume 13.1 FL (9.6-12.0); Monocytes # 0.5 10*3/uL (0.11-0.8); Platelet Count 133 T/CUMM (130-400); Red Blood Count 4.56 MC/CUMM (3.8-5.5); Red Cell Distribution Width 14.7 % (9.3-17.3); White Blood Count 16.4 T/CUMM (4-12)
[2017-11-23] MEDS: PROPOFOL 1,000 MG/100 ML BOTTLE IV SCH ×4 (01:01→22:11)
[2017-11-23] MEDS: INSULIN LISPRO 100 UNIT/ML SUBCUT SCH ×5 (01:01→23:10)
[2017-11-23] MEDS: PIPERACILLIN/TAZOBACTAM 3,375 MG in SODIUM CHLORIDE 0.9% 100 ML IV SCH ×4 (01:30→23:27)
[2017-11-23] MEDS: SODIUM CHLORIDE 0.45% 1,000 ML IV SCH ×3 (03:28→21:33)
[2017-11-23 04:36] LABS: ABG Base Excess -3.7 MMOL/L (-2.5-2.5); ABG HCO3 21.4 MMOL/L (20-26); ABG Oxygen Saturation 99.2 % (95-100); ABG PCO2 33.8 MM HG (35-48); ABG PH 7.388 (7.35-7.45); ABG TCO2 17.4 MMOL/L (23-27); Allen Test Positive; Pt O2 Delivery Device Ventilator
[2017-11-23 05:06] LABS: Basophils % 0.3 % (0.0-0.8); Eosinophils # 0.1 10*3/uL (0.0-0.87); Hematocrit 35.2 VOL% (35.7-47.0); Hemoglobin 11.4 GM/DL (12.0-16.0); Immature Granulocytes % 1.4 %; Immature Granulocytes Absolute 0.17 #; Lymphocytes # 1.3 10*3/uL (1.4-4.0); Lymphocytes % 10.4 % (21.3-54.2); Mean Corpuscular HGB Conc 32.4 GM/DL (32-36); Mean Corpuscular Hemoglobin 27 PG (27-34); Mean Corpuscular Volume 82.6 FL (87-102); Mean Platelet Volume 13.7 FL (9.6-12.0); Monocytes # 0.5 10*3/uL (0.11-0.8); Monocytes % 3.7 % (1.7-12.7); Neutrophils # 10.3 10*3/uL (1.4-7.4); Neutrophils % 83.2 % (38.7-73.9); Platelet Count 126 T/CUMM (130-400); Red Blood Count 4.26 MC/CUMM (3.8-5.5); Red Cell Distribution Width 14.5 % (9.3-17.3); White Blood Count 12.4 T/CUMM (4-12)
[2017-11-23 05:48] LABS: Calcium 7.7 MG/DL (8.5-10.1); Osmolality,Calculated 300.6 MOS/KG (273-304); Potassium 3.8 MMOL/L (3.5-5.1)
[2017-11-23 05:58] LABS: Albumin 1.6 G/DL (3.4-5.0); Bilirubin,Direct 0.26 MG/DL (0.0-0.20); Bilirubin,Indirect 0.3 MG/DL (0.0-1.0); Bilirubin,Total 0.6 MG/DL (0.2-1.0); Total Protein 4.8 G/DL (6.4-8.3)
[2017-11-23] MEDS ORDERED: FUROSEMIDE 40 MG/4 ML VIAL IV ONE (06:30)
[2017-11-23] MEDS: ASPIRIN CHEW 81 MG TABLET PO SCH (09:01)
[2017-11-23] MEDS: PANTOPRAZOLE 40 MG VIAL IV SCH (09:01)
[2017-11-23] MEDS: ENOXAPARIN 30 MG/0.3 ML SYRINGE SUBCUT SCH (09:01)
[2017-11-23] MEDS: CLOPIDOGREL 75 MG TABLET PO SCH (09:01)
[2017-11-23] MEDS: CARVEDILOL 3.125 MG TABLET PO SCH ×2 (16:13→17:37)
[2017-11-23] MEDS ORDERED: VANCOMYCIN INJ 1,000 MG in SODIUM CHLORIDE 0.9% 250 ML IV SCH (21:00)
[2017-11-24 04:29] LABS: Basophils # 0.1 10*3/uL (0.0-0.2); Basophils % 0.7 % (0.0-0.8); Eosinophils # 0.3 10*3/uL (0.0-0.87); Eosinophils % 2.7 % (0.00-10.9); Hematocrit 37.7 VOL% (35.7-47.0); Hemoglobin 11.4 GM/DL (12.0-16.0); Immature Granulocytes % 0.7 %; Immature Granulocytes Absolute 0.09 #; Lymphocytes # 1.5 10*3/uL (1.4-4.0); Lymphocytes % 12.3 % (21.3-54.2); Mean Corpuscular HGB Conc 30.2 GM/DL (32-36); Mean Corpuscular Hemoglobin 26 PG (27-34); Mean Corpuscular Volume 87.1 FL (87-102); Mean Platelet Volume 13.4 FL (9.6-12.0); Monocytes # 0.4 10*3/uL (0.11-0.8); Monocytes % 3.4 % (1.7-12.7); Neutrophils # 9.7 10*3/uL (1.4-7.4); Neutrophils % 80.2 % (38.7-73.9); Platelet Count 103 T/CUMM (130-400); Red Blood Count 4.33 MC/CUMM (3.8-5.5); Red Cell Distribution Width 14.7 % (9.3-17.3); White Blood Count 12.1 T/CUMM (4-12)
[2017-11-24] MEDS: INSULIN LISPRO 100 UNIT/ML SUBCUT SCH ×4 (05:07→23:11)
[2017-11-24 05:12] LABS: Calcium 7.4 MG/DL (8.5-10.1); Osmolality,Calculated 294.1 MOS/KG (273-304); Potassium 4.1 MMOL/L (3.5-5.1)
[2017-11-24] MEDS: SODIUM CHLORIDE 0.45% 1,000 ML IV SCH (05:34)
[2017-11-24] MEDS: PROPOFOL 1,000 MG/100 ML BOTTLE IV SCH ×2 (05:35→22:36)
[2017-11-24] MEDS: PIPERACILLIN/TAZOBACTAM 3,375 MG in SODIUM CHLORIDE 0.9% 100 ML IV SCH ×3 (07:58→23:18)
[2017-11-24] MEDS ORDERED: SODIUM CHLORIDE 0.45% 1,000 ML IV SCH (08:30)
[2017-11-24] MEDS: ASPIRIN CHEW 81 MG TABLET PO SCH (09:11)
[2017-11-24] MEDS: CLOPIDOGREL 75 MG TABLET PO SCH (09:11)
[2017-11-24] MEDS: CARVEDILOL 3.125 MG TABLET PO SCH ×2 (09:11→16:49)
[2017-11-24] MEDS: ENOXAPARIN 30 MG/0.3 ML SYRINGE SUBCUT SCH (09:11)
[2017-11-24] MEDS: PANTOPRAZOLE 40 MG VIAL IV SCH (09:12)
[2017-11-24] MEDS: DOPamine 800 MG/250 ML PREMIX IV SCH (16:44)
[2017-11-24 16:56] LABS: Apearance,Urine CLOUDY (Clear); Bacteria,Urine Few /HPF (Few); Bilirubin,Urine Negative (Negative); Blood, Urine Negative (Negative); Glucose,Urine (UA) Negative (Negative); Ketones,Urine Negative (Negative); Mucus,Urine Occasional /LPF (Occasional); Nitrite,Urine Negative (Negative); Protein,Urine 100 MG/DL; RBC,Urine 1 /HPF (0-4); Squamous Epithelial Cell,Urine Occasional /HPF (0-10); Urine Color Yellow (Yellow); Urine Urobilinogen < 2.0 EU/DL (0.2-1.0); WBC,Urine 5 /HPF (0-6)
[2017-11-25 03:50] LABS: ABG Base Excess -8.3 MMOL/L (-2.5-2.5); ABG HCO3 16.5 MMOL/L (20-26); ABG PCO2 31.4 MM HG (35-48); ABG PH 7.338 (7.35-7.45); ABG PO2 125.5 MM HG (80-95); ABG TCO2 17.4 MMOL/L (23-27); Allen Test Positive; Pt O2 Delivery Device Ventilator
[2017-11-25 06:21] LABS: Basophils # 0.1 10*3/uL (0.0-0.2); Basophils % 0.6 % (0.0-0.8); Eosinophils # 0.3 10*3/uL (0.0-0.87); Eosinophils % 2.8 % (0.00-10.9); Hematocrit 33.2 VOL% (35.7-47.0); Hemoglobin 10.8 GM/DL (12.0-16.0); Immature Granulocytes % 0.8 %; Immature Granulocytes Absolute 0.08 #; Lymphocytes # 1.3 10*3/uL (1.4-4.0); Lymphocytes % 13.1 % (21.3-54.2); Mean Corpuscular HGB Conc 32.5 GM/DL (32-36); Mean Corpuscular Hemoglobin 27 PG (27-34); Mean Platelet Volume 13.8 FL (9.6-12.0); Monocytes # 0.4 10*3/uL (0.11-0.8); Monocytes % 4.1 % (1.7-12.7); Neutrophils # 7.6 10*3/uL (1.4-7.4); Neutrophils % 78.6 % (38.7-73.9); Platelet Count 131 T/CUMM (130-400); Red Blood Count 4.05 MC/CUMM (3.8-5.5); Red Cell Distribution Width 14.6 % (9.3-17.3); White Blood Count 9.7 T/CUMM (4-12)
[2017-11-25 06:47] LABS: Calcium 7.2 MG/DL (8.5-10.1); Calcium 7.3 MG/DL (8.5-10.1); Osmolality,Calculated 294.3 MOS/KG (273-304); Osmolality,Calculated 296.1 MOS/KG (273-304)
[2017-11-25] MEDS: INSULIN LISPRO 100 UNIT/ML SUBCUT SCH ×3 (07:16→18:26)
[2017-11-25] MEDS: PIPERACILLIN/TAZOBACTAM 3,375 MG in SODIUM CHLORIDE 0.9% 100 ML IV SCH ×3 (09:01→23:05)
[2017-11-25] MEDS: ASPIRIN CHEW 81 MG TABLET PO SCH (09:50)
[2017-11-25] MEDS: CLOPIDOGREL 75 MG TABLET PO SCH (09:50)
[2017-11-25] MEDS: PANTOPRAZOLE 40 MG VIAL IV SCH (09:51)
[2017-11-25] MEDS: CARVEDILOL 3.125 MG TABLET PO SCH ×2 (09:51→16:28)
[2017-11-25] MEDS: ENOXAPARIN 30 MG/0.3 ML SYRINGE SUBCUT SCH (09:51)
[2017-11-25] MEDS: ALBUMIN 25% 25 GM in PREMIX 1 EACH IV SCH ×2 (09:56→18:27)
[2017-11-25] MEDS: SODIUM BICARB INJ 100 MEQ in DEXTROSE 5% 1,000 ML IV SCH (10:40)
[2017-11-25] MEDS: ZINC OXIDE PASTE 113 GM TUBE TOP SCH ×2 (11:51→20:15)
[2017-11-25] MEDS: DOPamine 800 MG/250 ML PREMIX IV SCH (16:51)
[2017-11-25] MEDS: PROPOFOL 1,000 MG/100 ML BOTTLE IV SCH (20:21)
[2017-11-26] MEDS: INSULIN LISPRO 100 UNIT/ML SUBCUT SCH ×5 (00:49→23:55)
[2017-11-26] MEDS: ALBUMIN 25% 25 GM in PREMIX 1 EACH IV SCH (02:20)
[2017-11-26 05:14] LABS: Basophils % 0.5 % (0.0-0.8); Eosinophils # 0.4 10*3/uL (0.0-0.87); Eosinophils % 5.8 % (0.00-10.9); Hematocrit 28.3 VOL% (35.7-47.0); Hemoglobin 9.2 GM/DL (12.0-16.0); Immature Granulocytes % 0.8 %; Immature Granulocytes Absolute 0.05 #; Lymphocytes # 1.3 10*3/uL (1.4-4.0); Lymphocytes % 19.6 % (21.3-54.2); Mean Corpuscular HGB Conc 32.5 GM/DL (32-36); Mean Corpuscular Hemoglobin 26 PG (27-34); Mean Corpuscular Volume 81.3 FL (87-102); Mean Platelet Volume 12.6 FL (9.6-12.0); Monocytes # 0.5 10*3/uL (0.11-0.8); Monocytes % 8.2 % (1.7-12.7); Neutrophils # 4.3 10*3/uL (1.4-7.4); Neutrophils % 65.1 % (38.7-73.9); Platelet Count 94 T/CUMM (130-400); Red Blood Count 3.48 MC/CUMM (3.8-5.5); Red Cell Distribution Width 14.6 % (9.3-17.3); White Blood Count 6.6 T/CUMM (4-12)
[2017-11-26 05:45] LABS: Calcium 7.2 MG/DL (8.5-10.1); Osmolality,Calculated 292.5 MOS/KG (273-304); Potassium 3.9 MMOL/L (3.5-5.1)
[2017-11-26 05:46] LABS: Calcium 7.4 MG/DL (8.5-10.1); Eosinophils 9 % (0-10); Hypochromasia 1+; Lymphocytes 13 % (20-55); Osmolality,Calculated 294.4 MOS/KG (273-304); Potassium 3.9 MMOL/L (3.5-5.1); Segmented Neutrophils 74 % (50-85); Total Cells Counted 100
[2017-11-26 05:47] LABS: Microcytosis Slight; Ovalocytes Slight; Platelet Estimate Decreased
[2017-11-26] MEDS: PROPOFOL 1,000 MG/100 ML BOTTLE IV SCH ×3 (07:35→21:20)
[2017-11-26] MEDS: SODIUM BICARB INJ 100 MEQ in DEXTROSE 5% 1,000 ML IV SCH ×2 (08:41→09:16)
[2017-11-26] MEDS: PANTOPRAZOLE 40 MG VIAL IV SCH (08:56)
[2017-11-26] MEDS: PIPERACILLIN/TAZOBACTAM 3,375 MG in SODIUM CHLORIDE 0.9% 100 ML IV SCH ×2 (08:56→21:19)
[2017-11-26] MEDS: ASPIRIN CHEW 81 MG TABLET PO SCH (08:56)
[2017-11-26] MEDS: ENOXAPARIN 30 MG/0.3 ML SYRINGE SUBCUT SCH (08:56)
[2017-11-26] MEDS: CARVEDILOL 3.125 MG TABLET PO SCH ×2 (08:56→18:08)
[2017-11-26] MEDS: CLOPIDOGREL 75 MG TABLET PO SCH (08:56)
[2017-11-26] MEDS: ZINC OXIDE PASTE 113 GM TUBE TOP SCH ×2 (09:00→21:20)
[2017-11-26] MEDS: DOPamine 800 MG/250 ML PREMIX IV SCH ×2 (09:11→16:43)
[2017-11-26] MEDS: ATORVASTATIN 10 MG TABLET PO SCH (21:20)
[2017-11-27] MEDS: PROPOFOL 1,000 MG/100 ML BOTTLE IV SCH ×2 (03:47→20:29)
[2017-11-27 05:14] LABS: ABG Base Excess -3.9 MMOL/L (-2.5-2.5); ABG HCO3 19.8 MMOL/L (20-26); ABG Oxygen Saturation 98.7 % (95-100); ABG PCO2 31.2 MM HG (35-48); ABG PH 7.421 (7.35-7.45); ABG PO2 208.9 MM HG (80-95); ABG TCO2 20.8 MMOL/L (23-27); Allen Test Positive; Pt O2 Delivery Device Ventilator
[2017-11-27 05:25] LABS: Basophils % 0.3 % (0.0-0.8); Eosinophils # 0.4 10*3/uL (0.0-0.87); Eosinophils % 5.6 % (0.00-10.9); Hematocrit 28.3 VOL% (35.7-47.0); Hemoglobin 9.1 GM/DL (12.0-16.0); Immature Granulocytes % 0.7 %; Immature Granulocytes Absolute 0.05 #; Lymphocytes # 0.9 10*3/uL (1.4-4.0); Mean Corpuscular HGB Conc 32.2 GM/DL (32-36); Mean Corpuscular Hemoglobin 26 PG (27-34); Mean Corpuscular Volume 81.6 FL (87-102); Mean Platelet Volume 13.6 FL (9.6-12.0); Monocytes # 0.5 10*3/uL (0.11-0.8); Monocytes % 6.8 % (1.7-12.7); Neutrophils # 5.4 10*3/uL (1.4-7.4); Neutrophils % 74.6 % (38.7-73.9); Platelet Count 103 T/CUMM (130-400); Red Blood Count 3.47 MC/CUMM (3.8-5.5); Red Cell Distribution Width 14.5 % (9.3-17.3); White Blood Count 7.2 T/CUMM (4-12)
[2017-11-27 06:00] LABS: Calcium 6.7 MG/DL (8.5-10.1); Osmolality,Calculated 293.5 MOS/KG (273-304); Potassium 4.2 MMOL/L (3.5-5.1)
[2017-11-27] MEDS: INSULIN LISPRO 100 UNIT/ML SUBCUT SCH ×3 (06:04→18:32)
[2017-11-27 06:05] LABS: Prealbumin 7.2 MG/DL (20-40)
[2017-11-27] MEDS: SODIUM BICARB INJ 100 MEQ in DEXTROSE 5% 1,000 ML IV SCH ×2 (06:05→09:42)
[2017-11-27 06:10] LABS: Platelet Estimate Decreased
[2017-11-27] MEDS: PIPERACILLIN/TAZOBACTAM 3,375 MG in SODIUM CHLORIDE 0.9% 100 ML IV SCH ×2 (07:38→20:29)
[2017-11-27 08:13] LABS: ABG Base Excess -2.6 MMOL/L (-2.5-2.5); ABG HCO3 21.4 MMOL/L (20-26); ABG Oxygen Saturation 98.7 % (95-100); ABG PCO2 34.5 MM HG (35-48); ABG PH 7.411 (7.35-7.45); ABG PO2 169.5 MM HG (80-95); ABG TCO2 22.5 MMOL/L (23-27); Allen Test Positive; Pt O2 Delivery Device Ventilator
[2017-11-27] MEDS: CARVEDILOL 3.125 MG TABLET PO SCH ×2 (09:18→18:32)
[2017-11-27] MEDS: PANTOPRAZOLE 40 MG VIAL IV SCH (09:18)
[2017-11-27] MEDS: ASPIRIN CHEW 81 MG TABLET PO SCH (09:18)
[2017-11-27] MEDS: ENOXAPARIN 30 MG/0.3 ML SYRINGE SUBCUT SCH (09:18)
[2017-11-27] MEDS: CLOPIDOGREL 75 MG TABLET PO SCH (09:18)
[2017-11-27] MEDS: ZINC OXIDE PASTE 113 GM TUBE TOP SCH ×2 (09:29→20:29)
[2017-11-27] MEDS: ALBUTEROL/IPRATROPIUM 3 ML NEB RESP TX SCH ×3 (13:07→19:45)
[2017-11-27] MEDS ORDERED: ALBUMIN 25% 25 GM in PREMIX 1 EACH IV ONE (13:49)
[2017-11-27] MEDS: DOPamine 800 MG/250 ML PREMIX IV SCH ×2 (15:56→16:54)
[2017-11-27] MEDS: ATORVASTATIN 10 MG TABLET PO SCH (20:29)
[2017-11-28] MEDS: INSULIN LISPRO 100 UNIT/ML SUBCUT SCH ×2 (00:14→07:06)
[2017-11-28] MEDS: ALBUTEROL/IPRATROPIUM 3 ML NEB RESP TX SCH ×4 (00:16→11:30)
[2017-11-28 04:28] LABS: ABG Base Excess -2.3 MMOL/L (-2.5-2.5); ABG HCO3 22.4 MMOL/L (20-26); ABG Oxygen Saturation 95.5 % (95-100); ABG PCO2 41.6 MM HG (35-48); ABG PH 7.353 (7.35-7.45); ABG PO2 77.1 MM HG (80-95); ABG TCO2 21.3 MMOL/L (23-27)
[2017-11-28] MEDS: SODIUM BICARB INJ 100 MEQ in DEXTROSE 5% 1,000 ML IV SCH (04:46)
[2017-11-28 06:02] LABS: Basophils % 0.3 % (0.0-0.8); Eosinophils # 0.5 10*3/uL (0.0-0.87); Eosinophils % 5.3 % (0.00-10.9); Hematocrit 30.9 VOL% (35.7-47.0); Hemoglobin 10.2 GM/DL (12.0-16.0); Immature Granulocytes % 0.7 %; Immature Granulocytes Absolute 0.06 #; Lymphocytes # 0.8 10*3/uL (1.4-4.0); Lymphocytes % 9.8 % (21.3-54.2); Mean Corpuscular Hemoglobin 27 PG (27-34); Mean Corpuscular Volume 80.9 FL (87-102); Mean Platelet Volume 13.2 FL (9.6-12.0); Monocytes # 0.6 10*3/uL (0.11-0.8); Monocytes % 6.9 % (1.7-12.7); Neutrophils # 6.6 10*3/uL (1.4-7.4); Platelet Count 116 T/CUMM (130-400); Red Blood Count 3.82 MC/CUMM (3.8-5.5); Red Cell Distribution Width 14.6 % (9.3-17.3); White Blood Count 8.6 T/CUMM (4-12)
[2017-11-28 06:27] LABS: Calcium 7.3 MG/DL (8.5-10.1); Osmolality,Calculated 290.8 MOS/KG (273-304); Potassium 4.8 MMOL/L (3.5-5.1)
[2017-11-28] MEDS ORDERED: DOXYCYCLINE HYCLATE INJ 200 MG, LIDOCAINE 1% INJ 20 ML in STERILE WATER INJ 40 ML INTRAPLEUR ONE (07:00)
[2017-11-28] MEDS: PIPERACILLIN/TAZOBACTAM 3,375 MG in SODIUM CHLORIDE 0.9% 100 ML IV SCH (08:18)
[2017-11-28] MEDS: ENOXAPARIN 30 MG/0.3 ML SYRINGE SUBCUT SCH (08:18)
[2017-11-28] MEDS: ASPIRIN CHEW 81 MG TABLET PO SCH (08:21)
[2017-11-28] MEDS: PANTOPRAZOLE 40 MG VIAL IV SCH (08:21)
[2017-11-28] MEDS: CARVEDILOL 3.125 MG TABLET PO SCH (08:21)
[2017-11-28] MEDS: CLOPIDOGREL 75 MG TABLET PO SCH (08:21)
[2017-11-28] MEDS: ZINC OXIDE PASTE 113 GM TUBE TOP SCH (08:22)
[2017-11-28] MEDS ORDERED: FUROSEMIDE 40 MG/4 ML VIAL IV ONE (08:46)
[2017-11-28] MEDS ORDERED: ALBUMIN 25% 25 GM in PREMIX 1 EACH IV SCH (09:00)
[2017-11-28 13:41] VITALS: BP 129/54
== END 2017-11-28 14:24 | DRG 291 ==
LOC: SUATTDRO 19:37 → N.ICU 19:37
PROVIDERS: ADMIT Internal Medicine; ATTEND Family Medicine

== ENCOUNTER 2017-12-21 00:15 | Inpatient (IN) ==
[2017-12-21] MEDS ORDERED: NOREPINEPHRINE 4 MG/4 ML VIAL IV ONE ×2 (01:50→08:33)
[2017-12-21 02:29] LABS: ABG Base Excess 0.1 MMOL/L (-2.5-2.5); ABG HCO3 24.5 MMOL/L (20-26); ABG PCO2 41.7 MM HG (35-48); ABG PH 7.387 (7.35-7.45); ABG PO2 85.8 MM HG (80-95); ABG TCO2 22.7 MMOL/L (23-27); Allen Test Positive; Pt O2 Delivery Device Ventilator
[2017-12-21] MEDS ORDERED: SODIUM BICARB INJ 100 MEQ in SODIUM CHLORIDE 0.45% 1,000 ML IV SCH (02:30)
[2017-12-21] MEDS: NOREPINEPHRINE 8 MG in SODIUM CHLORIDE 0.9% 242 ML IV PRN ×2 (03:00→08:39)
[2017-12-21] MEDS ORDERED: VANCOMYCIN INJ 1,250 MG in SODIUM CHLORIDE 0.9% 250 ML IV ONE (03:00)
[2017-12-21] MEDS ORDERED: ONDANSETRON 4 MG/2 ML VIAL IV PRN (03:01)
[2017-12-21] MEDS ORDERED: ACETAMINOPHEN 325 MG TABLET PO PRN (03:01)
[2017-12-21 04:17] LABS: Apearance,Urine CLOUDY (Clear); Bilirubin,Urine Negative (Negative); Blood, Urine Large mg/dL (Negative); Glucose,Urine (UA) Negative (Negative); Ketones,Urine Negative (Negative); Mucus,Urine Many /LPF (Occasional); Nitrite,Urine Negative (Negative); Protein,Urine 100 MG/DL; RBC,Urine 73 /HPF (0-4); Squamous Epithelial Cell,Urine Few /HPF (0-10); Urine Color Yellow (Yellow); Urine Urobilinogen < 2.0 EU/DL (0.2-1.0); WBC,Urine 2110 /HPF (0-6)
[2017-12-21] MEDS ORDERED: PIPERACILLIN/TAZOBACTAM 3,375 MG in SODIUM CHLORIDE 0.9% 100 ML IV SCH (05:00)
[2017-12-21 05:10] LABS: Basophils % 0.4 % (0.0-0.8); Eosinophils % 0.6 % (0.00-10.9); Hematocrit 31.4 VOL% (35.7-47.0); Hemoglobin 9.7 GM/DL (12.0-16.0); Immature Granulocytes % 1.2 %; Immature Granulocytes Absolute 0.06 #; Lymphocytes # 0.6 10*3/uL (1.4-4.0); Lymphocytes % 11.4 % (21.3-54.2); Mean Corpuscular HGB Conc 30.9 GM/DL (32-36); Mean Corpuscular Hemoglobin 26 PG (27-34); Mean Platelet Volume 12.9 FL (9.6-12.0); Monocytes # 0.1 10*3/uL (0.11-0.8); NRBC # 0.03 10*3/uL; Neutrophils # 4.3 10*3/uL (1.4-7.4); Neutrophils % 85.4 % (38.7-73.9); Platelet Count 120 T/CUMM (130-400); Red Blood Count 3.74 MC/CUMM (3.8-5.5); Red Cell Distribution Width 18.6 % (9.3-17.3); White Blood Count 5.1 T/CUMM (4-12)
[2017-12-21 05:20] LABS: INR 1.5; PT Patient Result 15.4 SECS
[2017-12-21 05:33] LABS: CKMB % 16.9 %
[2017-12-21 05:37] LABS: Albumin 1.6 G/DL (3.4-5.0); Bilirubin,Total 0.7 MG/DL (0.2-1.0); Calcium 7.5 MG/DL (8.5-10.1); Osmolality,Calculated 337.7 MOS/KG (273-304); Potassium 4.1 MMOL/L (3.5-5.1); Total Protein 5.2 G/DL (6.4-8.3)
[2017-12-21] MEDS ORDERED: HEPARIN DRIP 25,000 UNITS/500 ML PREMIX IV SCH (06:00)
[2017-12-21] MEDS ORDERED: PHENYLEPHRINE DRIP 40 MG/250 ML PREMIX IV ONE (06:22)
[2017-12-21] MEDS ORDERED: PHENYLEPHRINE DRIP 40 MG/250 ML PREMIX IV PRN (06:33)
[2017-12-21] MEDS ORDERED: SODIUM BICARB INJ 50 MEQ in DEXTROSE 5% 1,000 ML IV SCH (08:30)
[2017-12-21] MEDS ORDERED: ASPIRIN EC 81 MG TABLET PO SCH (09:00)
[2017-12-21] MEDS ORDERED: PANTOPRAZOLE 40 MG VIAL IV SCH (09:00)
[2017-12-21] MEDS ORDERED: ENOXAPARIN 30 MG/0.3 ML SYRINGE SUBCUT SCH (09:00)
[2017-12-21 10:17] VITALS: BP 59/41
[2017-12-22] MEDS ORDERED: VANCOMYCIN INJ 1,250 MG in SODIUM CHLORIDE 0.9% 250 ML IV PRN (10:00)
== END 2017-12-21 09:32 | disposition expired ==
LOC: N.ICU 01:29
PROVIDERS: ADMIT Family Medicine; ATTEND Family Medicine